=== PATIENT | male | born 1970 | race Caucasian/White ===

== ENCOUNTER → 2020-11-20 09:32 | Outpatient (CLI) | payer OTHER, SELFPAY ==
[2020-11-20 11:43] LABS: Ferritin 171 ng/ml (17.9-464)
== END ==
PROVIDERS: Visit Provider Nurse Practitioner Family
DX: E83.10 Disorder of iron metabolism, unspecified (principal); G25.81 Restless legs syndrome
CPT/HCPCS: 36415; 82728

== ENCOUNTER → 2020-11-26 14:27 | Outpatient (CLI) | payer OTHER, SELFPAY ==
--- NOTE | 2020-11-26 14:33 | CA_ITS ---
APPROVED REPORT EXAM: Comprehensive 2D, Doppler, and color-flow Echocardiogram Stonecutter: Gabby Moscoso RT(R) Ht: 5 ft 10 in Wt: 232lbs BSA: 2.22 BP: 140/84 mmHg Indications: Edema, insomnia, VICENTA, headaches 2D Dimensions LVOT 2.05 cm (M/F) 1.5-2.5 LVEF (Patricia's) 55.30 % M: 52 - 72 LV Volume 102.60 mL M: 62 - 150 LV Volume Index 46.21 mL/m2 M: 34 - 74 LA Volume 22.50 mL LA Volume Index 10.13 mL/m2 (M/F) 16-34 M-Mode Dimensions RVDd 2.61 cm (0.9-2.6) LA Diam 3.66 cm (1.9-4.0) LVDd 3.29 cm (3.5-5.7) Ao Diam 2.94 cm (2.0-3.7) LVDs 3.12 cm (3.5-5.7) IVSd 1.04 cm (0.6-1.1) PWd 0.86 cm (0.6-1.1) EF (Teich) 12.10% FS 5.20% EDV (Teich) 43.80 mL TAPSE 2.02 (<1.7) ESV (Teich) 38.50 mL LV Diastology E Decel Time 217.00 (160-240 msec) E/A Ratio 1.1 MED E' 6.50 (< 7 cm/sec) E'/MED E' Ratio 8.83 (>14) LAT E' 6.80 (<10 cm/sec) E/LAT E' Ratio 8.44 (>14) Mitral Valve MV E Max Jason. 57.00 (40-130 cm/s) MV A Velocity 51.00 (40-130 cm/s) E/A Ratio 1.12 MV Decel. Time 217.00 (160-240 ms) MV PHT 63.00 ms Left Ventricle Left atrium is normal size, left ventricle is normal size, left ventricle wall thickness is upper limit of normal, there is preserved left ventricular systolic function, visually estimated ejection fraction 55% with no regional wall motion abnormality, endocardial surfaces are poorly visualized. Diastolic parameters are inconclusive. Right Ventricle Right atrium and right ventricle are mildly enlarged with normal contractility. Aortic Valve Aortic valve is minimally thickened and fibrosed, there is no aortic stenosis or aortic insufficiency. Mitral Valve Mitral valve is grossly normal, there is trace mitral regurgitation. Tricuspid Valve Tricuspid grossly normal, there is trace tricuspid regurgitation, tricuspid regurgitation jet velocity is inadequate for calculation of the right ventricular systolic pressure. Pulmonic Valve Pulmonic valve is poorly visualized. Great Vessels Aortic root is normal size. Pericardium No significant pericardial effusion noted. Conclusion 1. Technically difficult study because of the patient factors and poor acoustic windows. Normal left ventricular size, preserved left ventricular systolic function, visually estimated ejection fraction 55% with no regional wall motion abnormality, diastolic parameters are inconclusive. 2. Mildly enlarged right ventricle with normal contractility. 3. Trace mitral and tricuspid regurgitation. 4. No significant pericardial effusion noted. Electronically signed by : Eduardo King, 11/27/2020 15:56:34
== END ==
PROVIDERS: PCP Physician Assistant; Visit Provider Specialist
DX: R60.0 Localized edema (principal); G47.31 Primary central sleep apnea; Z68.33 Body mass index [BMI] 33.0-33.9, adult
CPT/HCPCS: 93306

== ENCOUNTER → 2020-12-26 09:40 | Outpatient (CLI) | payer OTHER, SELFPAY | PROVIDERS: Visit Provider Nurse Practitioner Family | DX: Z20.822 Contact with and (suspected) exposure to COVID-19 (principal) | CPT/HCPCS: U0003 ==

== ENCOUNTER → 2020-12-29 20:15 | Outpatient (CLI) | payer OTHER, SELFPAY | PROVIDERS: PCP Family Medicine; Visit Provider Nurse Practitioner Family | DX: G47.39 Other sleep apnea (principal) | CPT/HCPCS: 95810 ==

== ENCOUNTER → 2021-12-30 08:38 | Outpatient (CLI) | payer BC, OTHER, SELFPAY ==
[2021-12-30 09:02] LABS: Basophils # 0.1 K/mm3 (0-0.2); Basophils % 1.5 % (0.1-2.0); Eosinophils # 0.1 K/mm3 (0.0-0.4); Eosinophils % 2.4 % (0.1-12.0); Hematocrit 45.5 % (42.0-52.0); Hemoglobin 15.7 g/dL (14.1-18.0); Lymphocytes # 1.9 K/mm3 (0.7-4.5); Lymphocytes % 37.5 % (10-50); Mean Corpuscular HGB Conc 34.4 g/dL (31.8-35.4); Mean Corpuscular Hemoglobin 32.4 pg (27.0-31.2); Mean Corpuscular Volume 94.1 fl (80-94); Mean Platelet Volume 8.2 fl (7.4-10.4); Monocytes # 0.3 K/mm3 (0.1-1.0); Monocytes % 5.3 % (1.7-9.3); Neutrophils # 2.7 K/mm3 (1.8-7.8); Neutrophils % 53.5 % (37.0-80.0); Platelet Count 194 K/mm3 (142-424); Red Blood Count 4.84 M/mm3 (4.60-6.20); Red Cell Distribution Width 13.3 % (11.5-17.5); White Blood Count 5.1 K/mm3 (4.8-10.8)
[2021-12-30 09:27] LABS: Alanine Aminotransferase 35 U/L (12-78); Albumin Level 4.8 g/dl (3.5-5.0); Albumin/Globulin Ratio 1.8 (1.1-1.8); Alkaline Phosphatase 92 U/L (38-126); Anion Gap 15.3 mEq/L (5-15); Aspartate Amino Transferase 37 U/L (17-59); Bilirubin,Total 0.9 mg/dl (0.2-1.3); Blood Urea Nitrogen 18 mg/dl (9-20); Calcium 9.5 mg/dl (8.4-10.2); Carbon Dioxide 23 mmol/L (22.0-30.0); Chloride 106 mmol/L (98-107); Chol/HDL Ratio 6.9 (1-3.5); Cholesterol 263 mg/dl (140-200); Estimated Glomerular Filt Rate 71 ml/min (>60); GFR (African American) 86 ML/MIN (>60); Globulin 2.7 g/dL (1.3-3.2); Glucose 104 mg/dl (74-100); HDL Cholesterol 38 mg/dl (40-60); Potassium 3.3 mmoL/L (3.5-5.1); Sodium 141 mmol/L (136-145); Total Protein,Serum 7.5 g/dl (6.3-8.2); Triglycerides 100 mg/dl (30-150); VLDL Cholesterol 20 mg/dL (0-40)
[2021-12-30 09:38] LABS: Direct LDL Cholesterol 181.11 mg/dL (100-129)
[2021-12-30 09:58] LABS: Thyroid Stimulating Hormone 2.61 uIU/mL (0.465-4.68)
== END ==
PROVIDERS: PCP Family Medicine; Visit Provider Family Medicine
DX: G47.419 Narcolepsy without cataplexy (principal); R53.83 Other fatigue; R73.9 Hyperglycemia, unspecified; K21.9 Gastro-esophageal reflux disease without esophagitis; N40.0 Benign prostatic hyperplasia without lower urinary tract symptoms
CPT/HCPCS: 36415; 80053; 80061; 83036; 84443; 85025

== ENCOUNTER 2021-12-30 09:41 | Emergency (ER) | payer OTHER, BC, SELFPAY ==
[2021-12-30 09:42] VITALS: BP 119/80; PULSE 96; RESP 18; RESP 19; TEMP 36.7; O2SAT 98; BMI 29.4
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
[2021-12-30 10:22] VITALS: BP 119/80; PULSE 96; RESP 19; TEMP 36.7; O2SAT 98; BMI 29.4
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
--- NOTE | 2021-12-30 11:24 | PC.NURSE ---
Notified RAD of CTs
--- NOTE | 2021-12-30 11:28 | PC.NURSE ---
patient to CT with instrumentation engineering technician
[2021-12-30 13:22] VITALS: BP 121/74; PULSE 79; RESP 16; TEMP 36.7; O2SAT 98
== END 2021-12-30 13:23 | disposition home or self-care (01) ==
LOC: UTC 10:01 → ER 11:18
PROVIDERS: Emergency Provider Nurse Practitioner Family; PCP Family Medicine
DX: S33.5XXA Sprain of ligaments of lumbar spine, initial encounter (principal); V43.52XA Car driver injured in collision with other type car in traffic accident, initial encounter; Y92.488 Other paved roadways as the place of occurrence of the external cause
CPT/HCPCS: 72040; 72070; 72100; 72125; 72128; 99284

== ENCOUNTER 2024-04-02 16:40 | Emergency (ER) | payer OTHER, SELFPAY ==
[2024-04-02 18:48] LABS: UTC Strep Screen (Rapid) Negative (Negative)
--- NOTE | 2024-04-02 18:48 | EXP.UTC ---
Discharge Plan Disposition Patient Disposition: Home, Self-Care Condition: Good Prescriptions Prescriptions: New azithromycin [Zithromax Z-Jordy] 250 mg tablet See Rx Instructions .ROUTE .COMPLEX 5 Days Qty: 6 0RF Rx Instructions: For 250 mg dose pack: take 500 mg today (day 1), then 250 mg for 4 days (days 2-5) benzonatate 100 mg capsule 100 mg PO TID PRN (Reason: cough) Qty: 30 0RF methylprednisolone [Medrol (Jordy)] 4 mg tablets,dose pack See Rx Instructions .Route .COMPLEX 6 Days Qty: 21 0RF Rx Instructions: taper pack; guaifenesin [Mucinex] 600 mg tablet extended release 12hr 1,200 mg PO BID PRN (Reason: cough) Qty: 20 0RF No Action duloxetine 30 mg capsule,delayed release(DR/EC) 30 mg PO DAILY meclizine 25 mg tablet 25 mg PO BID PRN methylphenidate HCl 10 mg tablet 20 mg PO BID Patient Comments: TAKE 1 TABLET BY MOUTH TWICE DAILY modafinil 100 mg tablet 100 mg PO DAILY omeprazole 40 mg capsule,delayed release(DR/EC) 40 mg PO ONCE PRN Patient Comments: TAKE 1 CAPSULE BY MOUTH IN THE EVENING ibuprofen 800 MG tablet 800 mg PO Q8HP PRN (Reason: Moderate Pain) Qty: 15 0RF sumatriptan succinate 100 MG tablet 100 mg PO NEEDED PRN (Reason: migraines) buprenorphine-naloxone 8-2 mg tablet, sublingual 8 mg PO DAILY tamsulosin 0.4 mg capsule 0.4 mg PO DAILY topiramate 100 mg tablet 100 mg PO DAILY benzonatate 100 MG capsule 100 mg PO TID PRN (Reason: Cough) Qty: 30 0RF methocarbamol 750 MG tablet 750 mg PO Q8HP PRN (Reason: (Certified Physical Therapist Assistant Use Only) Pain Per Pt) Qty: 30 0RF Referrals Follow up/Referrals: Keven Stephens MD [Primary Care Provider] - See instructions Activity Restrictions/Add. Instructions Additional Instructions/Restrictions: Start antibiotic today. Be sure to complete entire prescription even if feeling better Monitor temp. Tylenol every 4 hours as needed and / or ibuprofen every 6 hours as needed ( As long as your primary care physician has told you that it ok to take both. For fever/aches/pains ER if no less than 101 despite Tylenol or Motrin Humidifier/vaporizer or hot steamy shower Mucinex during the day for your cough and cough suppressant only at night. Be sure to drink lots of water. *Tessalon Perles will not cause drowsiness but use at bedtime to help stop cough so that you may get some rest. *Start steroid tomorrow Helps with inflammation therefore, cough and wheezing. Follow directions on the package. Reviewed side effects. Patient reports taking them before. Follow up IMMEDIATELY for new or worsening of symptoms OR no noticeable improvement over the next 48-72 hours. 911 immediately for any life threatening symptoms such as chest pain or difficulty breathing Clinical Impressions Clinical Impression: Sinusitis, Bronchitis Stand Alone Forms Stand Alone Forms: Work/School Release Instructions Patient Instructions: Acute Bronchitis, DI for Sinusitis Print Language Print Language: Divehi Discharge ED Provider: [facility] [place] HPI General Stated complaint: Cough,congestion,runny nose,weakness Time Seen by Provider: 04/02/24 18:48 History of Present Illness Provider Complaint: Patient states he has been sick for about a week with sore throat, sinus congestion and pressure, drainage in the back of his throat and cough and chest congestion States today he was feeling worse so he came in to get checked Related Data Home Medications ?Medication ?Instructions ?Recorded ?Confirmed sumatriptan succinate 100 mg tablet 100 mg PO NEEDED PRN migraines 02/21/18 10/20/23 buprenorphine 8 mg-naloxone 2 mg 8 mg PO DAILY uknown 11/17/20 10/20/23 sublingual tablet duloxetine 30 mg capsule,delayed 30 mg PO DAILY 11/17/20 10/20/23 release meclizine 25 mg tablet 25 mg PO BID PRN 11/17/20 10/20/23 tamsu
[2024-04-02 18:50] VITALS: BP 139/80; PULSE 66; RESP 18; TEMP 36.4; O2SAT 98; BMI 27.3
[2024-04-02 19:31] VITALS: BP 139/80; PULSE 66; RESP 18; TEMP 36.4; O2SAT 98
== END 2024-04-02 19:32 | disposition home or self-care (01) ==
PROVIDERS: Emergency Provider Nurse Practitioner; PCP Family Medicine
DX: J20.9 Acute bronchitis, unspecified (principal); J01.90 Acute sinusitis, unspecified; R07.0 Pain in throat; R09.82 Postnasal drip; R05.9 Cough, unspecified
CPT/HCPCS: 87635; 87880; 96372; 99204; 99212; G0463; J2919

== ENCOUNTER 2024-04-23 18:40 | Emergency (ER) | payer OTHER, SELFPAY ==
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
[2024-04-23 20:20] VITALS: BP 121/76; PULSE 65; RESP 19; TEMP 36.8; O2SAT 97; BMI 27.5
--- NOTE | 2024-04-23 20:39 | EXP.UTC ---
Discharge Plan Disposition Patient Disposition: Home, Self-Care Condition: Good Prescriptions Prescriptions: New cyclobenzaprine 10 mg Tablet 10 mg PO BID PRN (Reason: Muscle Spasm) Qty: 20 0RF ibuprofen [IBU] 800 mg tablet 800 mg PO Q8HP PRN (Reason: Moderate Pain) Qty: 30 0RF No Action sumatriptan succinate 100 mg tablet 100 mg PO DAILY Patient Comments: TAKE 1 TABLET BY MOUTH NEEDED FOR HEADACHE methylphenidate HCl 20 mg tablet 20 mg PO DAILY Patient Comments: TAKE 1 & 1/2 (ONE & ONE-HALF) TABLETS BY MOUTH TWICE DAILY omeprazole 40 mg capsule,delayed release(DR/EC) 40 mg PO DAILY Patient Comments: TAKE 1 CAPSULE BY MOUTH IN THE EVENING tamsulosin 0.4 mg capsule 0.4 mg PO DAILY Patient Comments: TAKE 1 CAPSULE BY MOUTH ONCE DAILY topiramate 100 mg tablet 100 mg PO BID Patient Comments: TAKE 1 TABLET BY MOUTH TWICE DAILY modafinil [Provigil] 100 mg tablet 100 mg PO DAILY Patient Comments: TAKE 1 TABLET BY MOUTH ONCE DAILY IN THE MORNING buprenorphine-naloxone 8-2 mg tablet, sublingual 1 tab SUBLINGUAL DAILY duloxetine 30 mg capsule,delayed release(DR/EC) 30 mg PO DAILY Referrals Follow up/Referrals: Jamar Lujan DO [Staff Physician] - See instructions Keven Stephens MD [Primary Care Provider] - See instructions Activity Restrictions/Add. Instructions Additional Instructions/Restrictions: Go home and rest. It would be best if you rested for the next few days too. No heavy lifting. No twisting. Take the oral medications as directed. Follow with the orthopedic doctor (Dr. Lujan). I put in a referral but you need to call his office and get an appointment. Please call his office in the morning. The muscle relaxer (cyclobenzaprine--Flexeril) will make you drowsy, so don't drive or operate heavy machinery after taking it. Follow up with your regular doctor. GO TO THE ER FOR ANY WORSENING SYMPTOMS OR CONCERN, ESPECIALLY BOWEL OR BLADDER ISSUES, SADDLE AREA NUMBNESS, FEVER, ETC Clinical Impressions Clinical Impression: Fall, Neck pain, Knee pain, right, Hip pain, right, Low back pain, Pain in right shoulder, Acute pain of right wrist Stand Alone Forms Stand Alone Forms: Work/School Release Print Language Print Language: Swedish Discharge ED Provider: Booker Neely [facility] General Stated complaint: AO fall 04/22, all over pain Mode of Arrival: Ambulatory Source of Information: Patient Limitations: No Limitations Time Seen by Provider: 04/23/24 20:39 Description of Symptoms (Recalled from Triage Doc. 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 PATIENT C/O PAIN TO NECK, RIGHT GROIN AREA, TAILBONE, LOWER BACK, RIGHT KNEE, AND RIGHT SHOULDER HEENT Symptoms (Recalled from RN notes): No Resp Symptoms (Recalled from RN notes): No Skin Symptoms (Recalled from RN notes): No MS Symptoms (Recalled from RN notes): Yes Functional Status (Recalled from RN notes): WNL History of Present Illness Provider Complaint: He states that he fell in a gas station yesterday. Since then he has had multiple complaints of pain. He states he is having neck pain, right shoulder pain, right hip pain, coccyx pain. Related Data Home Medications ?Medication ?Instructions ?Recorded ?Confirmed buprenorphine 8 mg-naloxone 2 mg 1 tab sublingual DAILY 04/23/24 04/23/24 sublingual tablet duloxetine 30 mg capsule,delayed 30 mg PO DAILY 04/23/24 04/23/24 release methylphenidate HCl 20 mg tablet 20 mg PO DAILY 04/23/24 04/23/24 modafinil 100 mg tablet (Provigil) 100 mg PO DAILY 04/23/24 04/23/24 omeprazole 40 mg capsule,delayed 40 mg PO DAILY 04/23/24 04/23/24 release sumatriptan succinate 100 mg tablet 100 mg PO DAILY 04/23/24 04/23/24 tamsulosin 0.4 mg capsule 0.4 mg PO DAILY 04/23/24 04/23/24 topiramate 100 mg tablet 100 mg PO BID 04/23/24 04/23/24 Previous Rx's ?Medication ?Instructions ?Recorded cyclobenzaprine 10 mg tablet 10 mg PO BID PRN Muscle Spasm #20 04/23/24 tabs ibuprofen 800 mg tablet (IBU) 800 mg PO Q8HP PRN Moderate Pain 04/23/24 #30 tabs Allergies Allergy/AdvReac Type Severity Reaction Status Date / Time cephalexin [CEPHALEXIN] Allergy Mild Anaphylaxis Verified 04/23/24 20:32 Worker's Comp Is this a Worker's Comp case?: No [facility] Disclaimer: The information contained in this section may have been updated after the patient was seen, as this information can be updated by other users. Medical History Migraine VICENTA (obstructive sleep apnea) Family History Other Cancer Coronary artery disease Social History Smoking Status: Never smoker second hand exposure: No alcohol intake: never substance use type: former substance user and prescription drug current occupational status: employed Travel in the last 8 weeks: None household members: spouse housing: house ROS Obtained: Yes All systems reviewed & no additional complaints except as documented Constitutional Constitutional: Denies chills, Denies fever(s) and Denies headache(s) Eyes Eyes: Denies eye discharge ENT Ears, Nose, Mouth, and Throat: Denies dizziness, Denies otalgia, Denies headache(s) and Denies sore throat Cardiovascular Cardiovascular: Denies chest pain Respiratory Respiratory: Denies shortness of breath, Denies chest congestion, Denies cough, Denies stridor and Denies wheezing Gastrointestinal Gastrointestingal: Denies abdominal pain, nausea or vomiting Musculoskeletal Musculoskeletal: Reports as per HPI Integumentary/Breasts Skin/Breast: Denies redness, Denies rash and Denies wounds Neurologic Neurologic: Denies dizziness, Denies headache(s), Denies paresthesias and Denies radicular pain Allergic/Immunologic Allergic/Immunologic: Denies wheezing Physical Exam General General appearance: alert and in no apparent distress Head Head exam: atraumatic, normocephalic and normal inspection Eye Eye exam: Present normal appearance, PERRL and EOMI ENT ENT exam: Present normal exam, normal oropharynx, mucous membranes moist, TM's normal bilaterally and normal external ear exam Neck Neck exam: Present normal inspection, full ROM and trachea midline; Absent meningismus or lymphadenopathy Chest Chest inspection: Present normal inspection and symmetric chest wall rise; Absent tenderness Respiratory Respiratory exam: Present normal lung sounds bilaterally; Absent respiratory distress Cardiovascular Cardiovascular exam: Present regular rate and normal rhythm; Absent JVD Abdominal Exam Abdominal exam: Present soft and normal bowel sounds; Absent distention, tenderness or guarding Extremities Exam Extremities exam: Present normal capillary refill; Absent calf tenderness Expanded Upper Extremity Exam Right: Shoulder exam: Present tenderness; Absent full ROM, swelling, abrasion, laceration, ecchymosis, deformity, crepitus, dislocation, erythema or tenderness over AC joint Arm exam: Present normal inspection and full ROM; Absent tenderness or swelling Elbow exam: Present normal inspection and full ROM; Absent tenderness, swelling, pain w/ pronation/supination or tenderness over radial head Forearm/Wrist exam: Present full ROM, tenderness and swelling; Absent abrasion, laceration, ecchymosis, deformity, crepitus, dislocation, erythema, tenderness over anatomical snuff box or pain with axial thumb loading Hand exam: Present normal inspection and full ROM; Absent tenderness Neuromotor exam: Normal wrist extension, thumb opposition, thumb IP flexion, thumb adduction and fingers 2-5 abduction Neurosensory exam: Normal radial nerve, ulnar nerve and median nerve Vascular exam: Normal capillary refill, radial pulse and ulnar pulse Expanded Lower Extremity Exam Right: Hip/Pelvis exam: Present normal inspection, full ROM, tenderness and pelvis stable; Absent swelling, ecchymosis, deformity, dislocation, external rotation, internal rotation, shortening of leg, pain on hip/pelvis palpation, hip pain on leg movement, erythema, crepitus, laceration or abrasion Upper leg exam: Present normal inspection and full ROM; Absent tenderness or swelling Knee exam: Present full ROM and tenderness; Absent swelling, abrasion, laceration, ecchymosis, deformity, crepitus, dislocation, erythema, effusion, anterior drawer sign, posterior draw sign, pain with valgus, laxity with valgus, pain with varus, laxity with varus or knee extension intact Lower leg exam: Present normal inspection; Absent full ROM, tenderness or swelling Ankle exam: Present normal inspection and full ROM; Absent tenderness, tenderness over talofibular lig or anterior draw sign Foot/toe exam: Present normal inspection and full ROM; Absent tenderness or swelling Neurovascular/Tendon exam: Present normal capillary refill, normal 2-point discrimination and normal fine/light touch; Absent pulse deficit, motor deficit, sensory deficit, tendon deficit, extremity cold to touch or pallor Gait: observed and limited by pain Back Exam Back exam: Present normal inspection; Absent tenderness Neurological Exam Neurological exam: Present alert and oriented X3 Psychiatric Psychiatric exam: Present normal affect and normal mood Skin Skin exam: Present warm, dry, intact and normal color Lymphatic Lymphatic Findings: no adenopathy Medical Decision Making Medical Records Medical records reviewed: No I reviewed the patient's medical records. Dajuan Inquiry Pt receiving controlled substance: No Vital Signs: 04/23/24 20:20 Temperature 98.3 F Temperature Source Oral Pulse Rate [Left Brachial] 65 Respiratory Rate 19 Blood Pressure [Left Arm] 121/76 Blood Pressure Mean [Left Arm] 91 Blood Pressure Source [Left Arm] Automatic Cuff Blood Pressure Position [Left Arm] Sitting 02 Sat by Pulse Oximetry 97 Oxygen Delivery Method Room Air Orders (Tests/Meds): ORDERS Category Date Time Status Shoulder XR right miminum 2 views [XR shoulder RT min Exams 04/23/24 19:32 Taken 2V] Stat Wrist XR right minimum 3 views [XR wrist RT min 3V] Exams 04/23/24 20:01 Taken Stat XR cervical spine 3V Stat Exams 04/23/24 19:32 Taken XR coccyx 2V Stat Exams 04/23/24 19:32 Taken XR hip RT 2-3V w/pelvis Stat Exams 04/23/24 19:32 Taken XR knee RT 3V Stat Exams 04/23/24 19:32 Taken XR lumbar spine 2-3V Stat Exams 04/23/24 19:32 Taken Procedures Risk/Benefits of Procedure(s) Were Explained: Yes Orthopedic Splinting/Casting Injury #1: Side: right Upper Extremity Injury Location: forearm, wrist and hand Upper Extremity Immobilizer: volar splint and applied by nurse/dr guillory Post Cast/Splinting Neuro Status: intact and no change Post Cast/Splinting Vasc Status: intact and no change
[2024-04-23] MEDS: KETOROLAC 60MG/2ML VIAL 60 MG IM (21:30)
[2024-04-23 21:41] VITALS: BP 121/76; PULSE 65; RESP 19; TEMP 36.8; O2SAT 97
== END 2024-04-23 21:47 | disposition home or self-care (01) ==
PROVIDERS: Emergency Provider Nurse Practitioner Family; PCP Family Medicine
DX: M54.2 Cervicalgia (principal); M25.561 Pain in right knee; M25.551 Pain in right hip; M25.511 Pain in right shoulder; M25.531 Pain in right wrist; M54.50 Low back pain, unspecified; W19.XXXA Unspecified fall, initial encounter
CPT/HCPCS: 72040; 72100; 72220; 73030; 73110; 73502; 73562; 96372; 99212; 99214; G0463; J1885

== ENCOUNTER 2024-05-08 12:29 | Outpatient (CLI) | payer OTHER, SELFPAY ==
[2024-05-08 12:58] LABS: Amphetamine/Metha Screen,Urine Negative ng/ml (<1000)
[2024-05-08 12:59] LABS: Barbiturates Screen,Urine Negative ng/ml (<200); Benzodiazepines Screen,Urine Negative ng/ml (<200)
[2024-05-08 13:00] LABS: Cannabinoid Screen,Urine Negative ng/ml (<50); Cocaine Screen,Urine Negative ng/ml (<300)
[2024-05-08 13:01] LABS: Methadone Screen,Urine Negative ng/ml (<300)
[2024-05-08 13:02] LABS: Opiate Screen,Urine Negative ng/ml (<300); Phencyclidine Screen,Urine Negative ng/ml (<25)
== END 2024-05-08 23:59 | disposition home or self-care (01) ==
LOC: LAB 12:30
PROVIDERS: PCP Family Medicine; Visit Provider Family Medicine
DX: Z79.899 Other long term (current) drug therapy (principal)
CPT/HCPCS: 80307

== ENCOUNTER 2024-07-25 17:00 | Outpatient (RCR) | payer BC, OTHER, SELFPAY ==
--- NOTE | 2024-07-18 18:28 | HMH.RHREAS ---
Rehab Reassessment Rehab OP Re-assessment Start: 06/20/24 18:00 Freq: Status: Active Protocol: Document 07/18/24 18:20 CRISTINE (Rec: 07/18/24 18:26 CRISTINE [id number]) E-signed By Berhane Martinez, PT Neck Disability Index Neck Disability Index Section 1: Pain Intensity The pain is fairly severe at the moment Section 2: Personal Care (washing, I can look after myself dressing, etc.) normally but it causes extra pain Section 3: Lifting I can lift heavy weights but it gives extra pain Section 4: Reading I can't read as much as I want because of moderate pain in my neck Section 5: Headaches I have severe headaches, which come frequently Section 6: Concentration I have a fair degree of difficulty in concentrating when I want to Section 7: Work I cannot do my usual work Section 8: Driving I can drive my car as long as I want with moderate pain in my neck Section 9: Sleeping My sleep is greatly disturbed (3-5 hrs sleepless) Section 10: Recreation I can hardly do any recreation activities because of pain in my neck NDI Score 27 Rehab Re-assessment Subjective Subjective Patient reports no significant improvement since start of care. Objective Objective Notes AROM: flx 34; ext 46; SBr 22; SBl 24; Rr31; Rl 32 MMT: WNL Pain: 8/10 currently; 9/10 at worst over past week Neuro: no changes in sensation or MMT BUE. Assessment Progress Assessment Slower Than Expected Assessment Notes Patient has been seen for 1 follow-up visit since start of care. Patient would benefit from continuing with skilled PT services in order to address functional limitations with reaching/lifting activities. Patient goals met STG 2 Goals Not Met STG 1; LTGs Revised Goals NA Plan Plan Continue with current POC. Frequency of Therapy 2x/week Duration of therapy 4 weeks Time and Billing Re-Eval Time 14 Re-Eval Billing Units 1 Charge for PT reassessment? Yes PHYSICIAN CERTIFICATION: I certify the specified therapy services for Du Dequan are required, authorized, and reviewed every 30 days.
== END 2024-07-25 23:59 | disposition home or self-care (01) ==
LOC: PT 17:00
PROVIDERS: PCP Family Medicine; Visit Provider Family Medicine
DX: M54.2 Cervicalgia (principal); S16.1XXA Strain of muscle, fascia and tendon at neck level, initial encounter
CPT/HCPCS: 20561; 97014; 97110; 97163; 97164; 97530; G0283

== ENCOUNTER 2024-08-28 15:10 | Outpatient (CLI) | payer BC, OTHER, SELFPAY ==
--- NOTE | 2024-08-28 15:16 | XR_ITS ---
FINAL REPORT TECHNIQUE: Chest PA & Lateral CLINICAL HISTORY: Shortness of breath, atypical angina COMPARISON: 02/21/2018 FINDINGS: 2 views of the chest were performed. The heart size is normal. The mediastinum is within normal limits. There is no acute cardiopulmonary process. There are no pleural effusions. There is no pneumothorax. The bony thorax appears intact. IMPRESSION: No acute cardiopulmonary process. Reviewed, Interpreted and Dictated by Ankit Murphy MD Transcribed by Moriah Thapa Authenticated and [facility]
--- NOTE | 2024-08-28 15:16 | CT_ITS ---
FINAL REPORT TECHNIQUE: Thin section axial CT images were obtained of the facial bones/sinuses. Coronal and sagittal reconstructions were obtained and reviewed. This study was performed with techniques to keep radiation doses as low as reasonably achievable, (ALARA). Individualized dose reduction techniques using automated exposure control or adjustment of mA and/or kV according to the patient's size were employed. CLINICAL HISTORY: previous hx of broken nasal bones COMPARISON: None FINDINGS: The paranasal sinuses are well aerated. There is no fracture. There are no air-fluid levels. IMPRESSION: Unremarkable. Reviewed, Interpreted and Dictated by Ankit Murphy MD Transcribed by Moriah Thapa Authenticated and [facility]
[2024-08-28 15:48] LABS: Basophils % 0.5 % (0.1-2.0); Eosinophils # 0.1 K/mm3 (0.0-0.4); Eosinophils % 1.8 % (0.1-12.0); Hematocrit 44.3 % (42.0-52.0); Hemoglobin 14.9 g/dL (14.1-18.0); Lymphocytes % 35.7 % (10-50); Mean Corpuscular HGB Conc 33.6 g/dL (31.8-35.4); Mean Corpuscular Hemoglobin 30.2 pg (27.0-31.2); Mean Corpuscular Volume 89.9 fl (80-94); Mean Platelet Volume 9.6 fl (7.4-10.4); Monocytes # 0.3 K/mm3 (0.1-1.0); Monocytes % 5.7 % (1.7-9.3); Neutrophils # 3.2 K/mm3 (1.8-7.8); Neutrophils % 55.9 % (37.0-80.0); Platelet Count 193 K/mm3 (142-424); Red Blood Count 4.93 M/mm3 (4.60-6.20); Red Cell Distribution Width 11.9 % (11.5-17.5); White Blood Count 5.6 K/mm3 (4.8-10.8)
[2024-08-28 16:06] LABS: Albumin Level 4.9 g/dl (3.5-5.0); Chloride 107 mmol/L (98-107); Potassium 4.2 mmoL/L (3.5-5.1); Sodium 136 mmol/L (136-145)
[2024-08-28 16:09] LABS: Alanine Aminotransferase 25 U/L (12-78); Alkaline Phosphatase 108 U/L (38-126); Anion Gap 11.2 mEq/L (5-15); Aspartate Amino Transferase 29 U/L (17-59); Bilirubin,Direct 0.2 mg/dl (0.0-0.4); Bilirubin,Indirect 0.2 mg/dL (0.0-0.9); Bilirubin,Total 0.4 mg/dl (0.2-1.3); Bilirubin,Unconjugated 0.2 mg/dL (0.0-1.1); Blood Urea Nitrogen 15 mg/dl (9-20); Calcium 9.5 mg/dl (8.4-10.2); Carbon Dioxide 22 mmol/L (22.0-30.0); Cholesterol 212 mg/dl (140-200); Estimated Glomerular Filt Rate 89 ml/min (>60); GFR (African American) 108 ML/MIN (>60); Glucose 101 mg/dl (74-100); Total Protein,Serum 7.5 g/dl (6.3-8.2)
[2024-08-28 16:10] LABS: Chol/HDL Ratio 6.8 (1-3.5); HDL Cholesterol 31 mg/dl (40-60); Magnesium 1.9 mg/dl (1.6-2.3)
[2024-08-28 16:21] LABS: Direct LDL Cholesterol 109.25 mg/dL (100-129)
[2024-08-28 16:23] LABS: Triglycerides 491 mg/dl (30-150)
[2024-08-28 19:06] LABS: Free T4 (Free Thyroxine) 1.01 ng/dl (0.78-2.19)
== END 2024-08-28 23:59 | disposition home or self-care (01) ==
LOC: RAD 15:11
PROVIDERS: Nurse Practitioner Family; PCP Family Medicine; Visit Provider Nurse Practitioner
DX: R53.83 Other fatigue (principal); I20.89 Other forms of angina pectoris; R06.00 Dyspnea, unspecified; J32.9 Chronic sinusitis, unspecified; R42 Dizziness and giddiness
CPT/HCPCS: 36415; 70486; 71046; 80048; 80061; 80076; 83735; 84439; 84443; 85025

== ENCOUNTER 2024-09-06 16:56 | Outpatient (CLI) | payer BC, OTHER, SELFPAY ==
[2024-09-06 17:41] LABS: D-Dimer 0.58 ug/mL (0.0-0.5)
== END 2024-09-06 23:59 | disposition home or self-care (01) ==
LOC: LAB 16:58
PROVIDERS: Physician Assistant; PCP Family Medicine; Visit Provider Nurse Practitioner Family
DX: R06.09 Other forms of dyspnea (principal)
CPT/HCPCS: 36415; 85378

== ENCOUNTER 2024-09-18 04:33 | Emergency (ER) | payer BC, OTHER, SELFPAY ==
[2024-09-18] VITALS (16 sets, daily range): BP systolic 129–151; BP diastolic 86–100; PULSE 77–99; RESP 9–20; TEMP 36.7–37.1; O2SAT 95–100; BMI 27.9
--- NOTE | 2024-09-18 04:45 | PC.NURSE ---
Pt awake alert and oriented pain a 10 on 1-10 scale in left clavicle area radiating to back Area tender to palpation. Skin pink warm and dry Resp full and easy but gaurded due to pain. Speech clear and appropriate.
--- NOTE | 2024-09-18 04:46 | ECG_ITS ---
APPROVED REPORT Exam: Resting ECG HR:90 bpm ECG Measurements Heart Rate 90 AXES WA 142 P 45 QRSd 109 QRS 19 QT 338 T 55 QTc 386 Conclusion SINUS RHYTHM POSSIBLE RIGHT VENTRICULAR CONDUCTION DELAY [RSR (QR) IN V1/V2] PROBABLE LATERAL MYOCARDIAL INFARCTION , PROBABLY OLD [35 ms Q WAVE IN I/aVL/V5/V6] No STEMI Electronically signed by : SHANDA ALONZO, 09/19/2024 07:16:21
--- NOTE | 2024-09-18 04:52 | XR_ITS ---
PROCEDURE INFORMATION: Exam: XR Chest Exam date and time: 09/18/2024 5:13 AM Age: 53 years old Clinical indication: Pain; Chest pressure; Additional info: L upper chest/shoulder pain TECHNIQUE: Imaging protocol: Radiologic exam of the chest. Views: 2 views. COMPARISON: CR XR CHEST 2V 08/28/2024 3:19 PM FINDINGS: Lungs: Unremarkable. No consolidation. Pleural spaces: Unremarkable. No pleural effusion. No pneumothorax. Heart/Mediastinum: Unremarkable. No cardiomegaly. Bones/joints: Degenerative change of the visualized osseous structures. IMPRESSION: No acute findings.
--- NOTE | 2024-09-18 04:52 | XR_ITS ---
PROCEDURE INFORMATION: Exam: XR Left Clavicle, Complete Exam date and time: 09/18/2024 5:17 AM Age: 53 years old Clinical indication: Pain; Other: Clavicle; Additional info: Pain medial clavicle TECHNIQUE: Imaging protocol: Radiologic exam of the left clavicle. Complete exam. Views: Any number of views. COMPARISON: CR Shoulder L 09/18/2024 5:15 AM FINDINGS: Bones/joints: Arthrosis of the acromioclavicular and glenohumeral joint. Postprocedural change of the proximal humerus. Soft tissues: Normal. IMPRESSION: Degenerative changes without acute finding.
--- NOTE | 2024-09-18 04:52 | XR_ITS ---
PROCEDURE INFORMATION: Exam: XR Left Shoulder Exam date and time: 09/18/2024 5:15 AM Age: 53 years old Clinical indication: Pain; Shoulder; Left; Additional info: Pain over top of shoulder to medial clavicle TECHNIQUE: Imaging protocol: Radiologic exam of the left shoulder. Views: 2 or more views. COMPARISON: CR XR CHEST 2V 09/18/2024 5:13 AM FINDINGS: Bones/joints: Arthrosis of the acromioclavicular and glenohumeral joint. Postprocedural changes of the proximal humerus. Soft tissues: Normal. IMPRESSION: Osteoarthritis without acute findings.
--- NOTE | 2024-09-18 04:55 | HMH.EDGENADL ---
Discharge Plan Disposition Patient Disposition: Home, Self-Care Condition: Fair Chief Complaint: Neck Pain/Injury Prescriptions Prescriptions: No Action meclizine 25 mg tablet 25 mg PO DAILY PRN (Reason: Vertigo) Patient Comments: TAKE 1 TABLET BY MOUTH THREE TIMES DAILY NEEDED methylphenidate HCl 20 mg tablet 20 mg PO DAILY Patient Comments: TAKE 1 & 1/2 (ONE & ONE-HALF) TABLETS BY MOUTH TWICE DAILY tamsulosin 0.4 mg capsule 0.4 mg PO DAILY Patient Comments: TAKE 1 CAPSULE BY MOUTH ONCE DAILY topiramate 100 mg tablet 100 mg PO BID Patient Comments: TAKE 1 TABLET BY MOUTH TWICE DAILY modafinil [Provigil] 100 mg tablet 100 mg PO DAILY Patient Comments: TAKE 1 TABLET BY MOUTH ONCE DAILY IN THE MORNING duloxetine 30 mg capsule,delayed release(DR/EC) 30 mg PO DAILY ibuprofen [IBU] 800 mg tablet 800 mg PO Q8HP PRN (Reason: Moderate Pain) Qty: 30 0RF omeprazole 40 mg capsule,delayed release(DR/EC) 40 mg PO DAILY PRN (Reason: Acid Reflux) Patient Comments: TAKE 1 CAPSULE BY MOUTH IN THE EVENING sumatriptan succinate 100 mg tablet 100 mg PO DAILY PRN (Reason: Headache) Patient Comments: TAKE 1 TABLET BY MOUTH NEEDED FOR HEADACHE buprenorphine-naloxone 8-2 mg tablet, sublingual 2 tab SUBLINGUAL DAILY Referrals Follow up/Referrals: Keven Stephens MD [Primary Care Provider] - See instructions Activity Restrictions/Add. Instructions Additional Instructions/Restrictions: You were evaluated in the ER. Continue taking your home medications as prescribed. Follow-up with cardiology as scheduled on , do not miss this appointment. Follow-up with your primary care doctor as well. Immediately return to the ER with any new, worsening, or otherwise concerning symptoms. Clinical Impressions Clinical Impression: Chest pain, Left shoulder pain, Arthritis of left shoulder Instructions Patient Instructions: DI for Neck Pain Print Language Print Language: Syriac Discharge ED Provider: Ra Urban Adult [facility] General Chief complaint: Neck Pain/Injury Stated complaint: L shoulder pain Time Seen by Provider: 09/18/24 04:42 Mode of Arrival: Ambulatory Source of Information: Patient Limitations: No Limitations Description of Symptoms (Recalled from ER Triage Doc. by RN): PT C/O LEFT SIDED NECK/SHOULDER PAIN ONGOING FOR MONTHS HOWEVER WORSE TONIGHT. DENIES INJURY OR OTHER SYMPTOMS. History of Present Illness HPI narrative: 53-year-old male with history of VICENTA, deviated septum, migraine, neuropathy, radiculopathy presents to the ER with complaints of left neck/shoulder/left upper chest pain that worsened tonight approximately 4 hours prior to arrival. Reportedly has been going on for months but tonight he was working helping fix a leaking water line and the pain worsened. He denies falling or lifting anything heavy. He points to the medial end of his left clavicle as the point of maximum pain and states that the vein right above it hurts. He states any movement of the left shoulder makes the pain worse. He is right-handed. He denies difficulty breathing or shortness of breath, no nausea, vomiting, dizziness, headache, fevers, chills, cough, congestion, or other associated symptoms. He does not describe the pain as pressure. It does not radiate to his back. He does not have any numbness, tingling, or weakness associated. Patient reports no known cardiac history but does have stress test with cardiology scheduled for this . Related Data Home Medications ?Medication ?Instructions ?Recorded ?Confirmed duloxetine 30 mg capsule,delayed 30 mg PO DAILY 04/23/24 09/18/24 release methylphenidate HCl 20 mg tablet 20 mg PO DAILY 04/23/24 09/18/24 modafinil 100 mg tablet (Provigil) 100 mg PO DAILY 04/23/24 09/18/24 tamsulosin 0.4 mg capsule 0.4 mg PO DAILY 04/23/24 09/18/24 topiramate 100 mg tablet 100 mg PO BID 04/23/24 09/18/24 meclizine 25 mg tablet 25 mg PO DAILY PRN Vertigo 08/15/24 09/18/24 omeprazole 40 mg capsule,delayed 40 mg PO DAILY PRN Acid Reflux 08/15/24 09/18/24 release sumatriptan succinate 100 mg tablet 100 mg PO DAILY PRN Headache 08/15/24 09/18/24 buprenorphine 8 mg-naloxone 2 mg 2 tab sublingual DAILY 08/28/24 09/18/24 sublingual tablet Previous Rx's ?Medication ?Instructions ?Recorded ibuprofen 800 mg tablet (IBU) 800 mg PO Q8HP PRN Moderate Pain 04/23/24 #30 tabs Allergies Allergy/AdvReac Type Severity Reaction Status Date / Time cephalexin (CEPHALEXIN) Allergy Mild Anaphylaxis Verified 09/18/24 04:46 [facility] Disclaimer: The information contained in this section may have been updated after the patient was seen, as this information can be updated by other users. Medical History (Updated 09/18/24 @ 06:27 by Ra Urban MD) Left sided numbness Fatigue Atypical angina Dyspnea Dizziness Carotid artery hypersensitivity Deviated septum Migraine VICENTA (obstructive sleep apnea) Surgical History History of appendectomy History of arthroscopy of shoulder History of arthroscopic knee surgery Family History Other Cancer Coronary artery disease Social History Smoking Status: Never smoker second hand exposure: No alcohol intake: never substance use type: former substance user and prescription drug current occupational status: employed Travel in the last 8 weeks: None household members: spouse housing: house Have you lived/traveled outside [place] in past 30 days?: No Contact w/someone who lives/traveled outside US past 30 days?: No Exposure to someone with infectious disease in past 14 days?: No Do you have a fever (greater than 100.4 F or 38 C)?: No Have you tested positive for COVID-19: No Exposed to someone with COVID-19 in past 14 days?: No Do you have a sore throat?: No Do you have a cough?: No Do you have any weakness?: No Do you have any diarrhea?: No Are you experiencing any unusual bleeding?: No Do you have any muscle aches/pain?: No Do you have any abdominal pain?: No Are you experiencing loss of taste or smell?: No Other Medical History Have you received the Flu Vaccine for this season: No Have you received the Pneumonia Vaccine: No ROS Obtained: Yes Systems reviewed as appropriate & no additional complaints except as documented Per HPI Physical Exam General General appearance: alert and in no apparent distress Head Head exam: atraumatic and normocephalic Eye Eye exam: Present PERRL and EOMI ENT ENT exam: Present mucous membranes moist Neck Neck exam: Present normal inspection, full ROM and tenderness (Tenderness at the inferior aspect of the SCM with no swelling or evidence of trauma, this is the vein that patient reports being painful, no other tenderness of the neck, no cervical spine tenderness) Chest Chest inspection: Present symmetric chest wall rise and tenderness (Patient has tenderness to palpation of the very left upper quadrant of the chest, maximum tenderness at the left sternoclavicular joint with obvious enlargement compared to the right); Absent rash Respiratory Respiratory exam: Absent respiratory distress, wheezes or stridor Cardiovascular Cardiovascular exam: Present regular rate and normal rhythm Abdominal Exam Abdominal exam: Present soft; Absent distention or tenderness Extremities Exam Extremities exam: Present full ROM (Patient has full range of motion throughout, however when he performs range of motion of the left shoulder, he has pain in the shoulder and at the sternoclavicular joint) Neurological Exam Neurological exam: Present alert and oriented X3; Absent motor sensory deficit Psychiatric Psychiatric exam: Present normal affect and normal mood Skin Skin exam: Present warm and dry Medical Decision Making Medical Records Medical records reviewed: Yes I reviewed the patient's medical records. Screening: Per USPSTF and CDC recommendations, given the prevalence of disease in our region, it is our hospital?s policy to screen for HIV and viral Hepatitis for all patients aged 18 and over and those with ongoing risk factors. MR Comment: Most recent cardiology note from 08/28/2024 with Tanya Schneider was reviewed. Reportedly patient was complaining of right sided pain however the description of pain is identical to that which she describes on the left and was being evaluated for atypical angina, EKG at that time showed normal sinus rhythm, possible old lateral infarct with heart rate 84, there plan included NOTE SPECIALIST, GXT Myoview, echo, chest x-ray, CTA PE, and return to clinic in 3 weeks. Chest x-ray from that date personally reviewed demonstrates no acute thoracic abnormality Dajuan Inquiry Pt receiving controlled substance: No Vital Signs: 09/18/24 04:34 Temperature 98.8 F Temperature Source Oral Pulse Rate [Apical] 99 H Respiratory Rate 20 Blood Pressure [Right Arm] 141/96 H Blood Pressure Mean [Right Arm] 111 02 Sat by Pulse Oximetry 98 Oxygen Delivery Method Room Air Lab Data Lab Results 09/18/24 04:45: WBC 8.5, RBC 4.39 L, Hgb 13.5 L, Hct 39.3 L, MCV 89.5, MCH 30.8, MCHC 34.4, RDW 12.3, Plt Count 220, MPV 9.9, Neut % (Auto) 74.3, Lymph % (Auto) 18.1, Jerauld % (Auto) 5.9, Eos % (Auto) 1.1, Baso % (Auto) 0.2, Neut # (Auto) 6.4, Lymph # (Auto) 1.6, Jerauld # (Auto) 0.5, Eos # (Auto) 0.1, Baso # (Auto) 0.0, PT 10.5, INR 0.94, D-Dimer 0.80 H, Sodium 141, Potassium 3.5, Chloride 107, Carbon Dioxide 24, Anion Gap 13.5, BUN 15, Creatinine 1.00, Estimated Creat Clear 109, Estimated GFR 79, Est GFR ( Amer) 95, Glucose 115 H, Calcium 9.0, Total Bilirubin 0.4, AST 39, ALT 34, Alkaline Phosphatase 102, Total Protein 8.0, Albumin 4.9, Globulin 3.1, Albumin/Globulin Ratio 1.6 09/18/24 04:45 09/18/24 04:45 Orders (Tests/Meds): ED MEDICATIONS Discontinued Medications Generic Name Dose Route Start Last Admin Trade Name Freq PRN Reason Stop Dose Admin Ketorolac Tromethamine 30 mg 09/18/24 04:52 09/18/24 05:11 Ketorolac 30mg/Ml Vial IV 09/18/24 04:53 30 mg ONCE ONE Administration Lidocaine 1 each 09/18/24 04:52 09/18/24 05:11 Lidocaine 5% Transdermal Patch TP 09/18/24 04:53 1 each ONCE ONE Administration ORDERS Category Date Time Status CXR 2 view (NOT portable) [XR chest 2V] Stat Exams 09/18/24 04:52 Completed Shoulder XR left minimum 2 views [XR shoulder LT min 2V Exams 09/18/24 04:52 Completed ] Stat XR clavicle LT Stat Exams 09/18/24 04:52 Completed CBC w/Auto Diff [Complete Blood Count Auto Diff] Stat Lab 09/18/24 04:45 Completed CMP [Comprehensive Metabolic Panel] Stat Lab 09/18/24 04:45 Results D-Dimer Stat Lab 09/18/24 04:45 Completed PT INR [Prothrombin Time INR] Stat Lab 09/18/24 04:45 Completed Trop I [Troponin I] Stat Lab 09/18/24 04:45 Results Troponin I Q3H Lab 09/18/24 08:00 Ordered Troponin I Q3H Lab 09/18/24 11:00 Ordered Medical Decision Narrative: In summary, this 53-year-old male with comorbidities as described in the HPI which increase the amount of data to be reviewed as well as his overall morbidity presents to the emergency department today with left shoulder/clavicle/upper chest pain that has been constant for months but worsened tonight at work. On initial evaluation patient is hemodynamically stable, afebrile, he is obviously anxious, exam is notable for benign cardiopulmonary exam however patient has tenderness of the muscles throughout the left shoulder including the inferior aspect of the left SCM, maximum tenderness at the sternoclavicular joint with obvious enlargement of this joint on the left compared to the right. Differential diagnosis includes but is not limited to ACS, PE, pneumothorax, pneumonia, arthritis or injury of the sternoclavicular joint, costochondritis, other musculoskeletal abnormality or injury, electrolyte abnormality, I also considered radiculopathy given patient has history of this however I have very low suspicion for this since he does not have any numbness or tingling and the pain is very obviously at his sternoclavicular joint, not on the posterior aspect of the neck. Based on these concerns, I ordered serum labs, cardiac workup, D-dimer, x-rays. ECG personally interpreted demonstrates normal sinus rhythm, rate 90, normal axis, normal AK and QTc, no STEMI. 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 Labs personally reviewed demonstrate no leukocytosis, trace anemia, platelets normal at 220, PT/INR normal, CMP nonactionable, D-dimer 0.8, by years criteria PE is excluded, initial troponin undetectably low less than 0.01. XR personally interpreted demonstrates no acute thoracic abnormality, degenerative changes of the left shoulder, sternoclavicular joint is difficult to assess, there is no fracture, dislocation, or other acute osseous injury. See radiology read for final interpretation. On reassessment patient's pain is improving. He also received acetaminophen and aspirin. 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 I recommended against this and expressed my concern that he should have a second troponin to rule out evolving TN. We reviewed his imaging showing degenerative changes as well as his labs so far. He is reassured that his EKG is stable from prior and labs are also stable from prior. He states he has follow-up with cardiology 2 days from now and is planning to keep that appointment. He refused second troponin and would like to be discharged. He understands this puts him at increased risk of missing potentially dangerous cardiac problems but is adamant about going home and following up outpatient. Since his pain is resolving with conservative management and he does have reassuring workup including undetectable troponin that was drawn approximately 4 hours after his pain started and has stable ECG from prior, as well as reproducible pain with point tenderness over the sternoclavicular joint, I do have lower suspicion for cardiac etiology. I also have lower suspicion for cardiac etiology since this is an exacerbation of chronic pain. While I would have like the patient to stay for repeat troponin, he has decision-making capacity and close outpatient follow-up for this problem already, I explained to him the low sensitivity of this troponin at this stage which she understands but after extensive discussion he continues to wish to be discharged, he is going as a patient directed discharge. He has insight into his condition and capacity to make this decision at this time. Patient was given instructions on symptomatic management, follow up instructions, and strict return precautions for the emergency department. He states he is absolutely able to come back to the ER if he has any worsening of symptoms and will do so. Patient indicated understanding and left in stable condition. Critical Care Critical Care Time Critical Care Time: No
[2024-09-18] MEDS: LIDOCAINE 5% TRANSDERMAL PATCH 1 EACH TP (05:11)
[2024-09-18] MEDS: KETOROLAC 30MG/ML VIAL 30 MG IV (05:11)
[2024-09-18 05:12] LABS: Basophils % 0.2 % (0.1-2.0); Eosinophils # 0.1 K/mm3 (0.0-0.4); Eosinophils % 1.1 % (0.1-12.0); Hematocrit 39.3 % (42.0-52.0); Hemoglobin 13.5 g/dL (14.1-18.0); Lymphocytes # 1.6 K/mm3 (0.7-4.5); Lymphocytes % 18.1 % (10-50); Mean Corpuscular HGB Conc 34.4 g/dL (31.8-35.4); Mean Corpuscular Hemoglobin 30.8 pg (27.0-31.2); Mean Corpuscular Volume 89.5 fl (80-94); Mean Platelet Volume 9.9 fl (7.4-10.4); Monocytes # 0.5 K/mm3 (0.1-1.0); Monocytes % 5.9 % (1.7-9.3); Neutrophils # 6.4 K/mm3 (1.8-7.8); Neutrophils % 74.3 % (37.0-80.0); Platelet Count 220 K/mm3 (142-424); Red Blood Count 4.39 M/mm3 (4.60-6.20); Red Cell Distribution Width 12.3 % (11.5-17.5); White Blood Count 8.5 K/mm3 (4.8-10.8)
[2024-09-18 05:13] LABS: INR 0.94 (0.9-1.1); Prothrombin Time 10.5 seconds (9.2-12.1)
[2024-09-18 05:27] LABS: Albumin Level 4.9 g/dl (3.5-5.0); Chloride 107 mmol/L (98-107); Potassium 3.5 mmoL/L (3.5-5.1); Sodium 141 mmol/L (136-145)
[2024-09-18 05:30] LABS: Alanine Aminotransferase 34 U/L (12-78); Albumin/Globulin Ratio 1.6 (1.1-1.8); Anion Gap 13.5 mEq/L (5-15); Aspartate Amino Transferase 39 U/L (17-59); Blood Urea Nitrogen 15 mg/dl (9-20); Carbon Dioxide 24 mmol/L (22.0-30.0); Creatinine Clearance Estimated 109 mL/min (50-200); Estimated Glomerular Filt Rate 79 ml/min (>60); GFR (African American) 95 ML/MIN (>60); Globulin 3.1 g/dL (1.3-3.2)
[2024-09-18 05:31] LABS: Alkaline Phosphatase 102 U/L (38-126); Bilirubin,Total 0.4 mg/dl (0.2-1.3); Glucose 115 mg/dl (74-100)
[2024-09-18 06:06] LABS: Troponin I < 0.01 ng/ml (0.00-0.034)
[2024-09-18] MEDS: ACETAMINOPHEN 500MG TAB 1000 MG PO (06:19)
[2024-09-18] MEDS: ASPIRIN 81MG CHEWABLE TABLET 324 MG PO (06:25)
== END 2024-09-18 06:34 | disposition home or self-care (01) ==
PROVIDERS: Emergency Provider Emergency Medicine; PCP Family Medicine
DX: M19.012 Primary osteoarthritis, left shoulder (principal); R07.9 Chest pain, unspecified; M25.512 Pain in left shoulder; M54.2 Cervicalgia; R07.89 Other chest pain
CPT/HCPCS: 71046; 73000; 73030; 80053; 84484; 85025; 85378; 85610; 93005; 96374; 99284; J1885

== ENCOUNTER 2024-09-20 06:32 | Outpatient (CLI) | payer BC, OTHER, SELFPAY ==
--- NOTE | 2024-09-20 | CA_ITS ---
APPROVED REPORT Exam: Exercise Treadmill Technologist: Maylin Pugh Ht: 5 ft 10 in Wt: 198 lbs BSA: 2.08 m2 HR: 77 bpm BP: 139/61 mmHg Rhythm: SR Medical History Medications: Buprenorphine-Naloxone, Duloxetine, Ibuprofen, Meclizine, Modafinil, Methylphenidate HCl, Omeprazole, Sumatriptan Succinate, Tamsulosin, Topiramate Allergies: Cephalexin Cardiac Risk Factors: FHX of CAD Stress Test Details Test: Exercise stress testing was performed using a Gopi protocol. HR Resting HR: 77 bpm Max Heart Rate (APMHR): 169 bpm Max HR Achieved: 150 bpm Target HR (85% APMHR): 144 bpm % of APMHR: 89 Recovery HR: 87 bpm HR response to stress: Normal HR response to stress BP Resting BP: 139.0/61.0 mmHg Max BP: 150.0/89.0 mmHg Recovery BP: 129.0/81.0 mmHg BP response to stress: Normal blood pressure response to stress. ECG Resting ECG: Normal sinus rhythm Stress EC.[address] depression Arrhythmia: None Clinical Exercise duration: 9:00 min Exercise capacity: 7.1 METs Stress ECG Conclusion Patient developed mild dyspnea at peak stress. Ectopy: None ST changes: 0.[address] depression. Conclusion: Average exercise capacity. No evidence of ECG changes at peak stress. Myoview images are reported separately. Electronically signed by : Raven Patel MD 09/26/2024 00:15:47
--- NOTE | 2024-09-20 06:38 | NM_ITS ---
APPROVED REPORT Exam: Nuclear Stress Test Indication: chest pain..soa..fatigue Patient Location: Outpatient Stress Tech: Maylin Pugh [place] Tech:Raquel Rock ELIUEduin RT(R)(N) Ht: 5 ft 10 in Wt: 195 lbs HR: 77 bpm BP: 139/61 mmHg BSA: 2.07 m2 TID: 1.04 BMI: 27.9 History: chest pain..soa..fatigue Procedure: Patient exercised on Gopi protocol 9 minutes and sec, resting heart rate 77 bpm, resting blood pressure 139/61 mmHg, with exercise maximum heart rate achived was 150 bpm which is 85 % of the maximum predicted heart rate and blood pressure was 145/80 mmHg. Test was stopped due to fatigue. Patient denied any complaint of chest pain. Patient has Average exercise capacity, achieved 7.1 METs of workload on treadmill, the blood pressure response to exercise was normal. Cardiac Stress and Resting SPECT Images: Cardiac Stress and Resting SPECT images were obtained using technetium 99m Myoview 31.6 mCi stress and 10.63 mCi at rest. Technically difficult study due to significant soft tissue overlap with the cardiac borders. This may affect diagnostic interpretation of the study findings. Resting and stress imaging in supine and prone positions demonstrate a large sized, moderate, fixed perfusion defect in the inferior LV wall. There is also a medium sized, moderate, reversible perfusion defect in the anterior LV wall. Gated imaging demonstrates mild reduction global LV systolic function. There is moderate hypokinesis of the inferior LV wall. LVEF is calculated at 44%. Conclusion: Large sized, moderate, fixed perfusion defect in the inferior LV wall. There is also a medium sized, moderate, reversible perfusion defect in the anterior LV wall. Findings are suggestive of reversible ischemia. Gated imaging demonstrates mild reduction global LV systolic function. There is moderate hypokinesis of the inferior LV wall. LVEF is calculated at 44%. Electronically signed by : Raven Patel MD 09/26/2024 00:09:45
--- NOTE | 2024-09-20 08:38 | CA_ITS ---
FINAL REPORT TECHNIQUE: Guzman scale, color and spectral doppler images of the bilateral carotid arteries were obtained. CLINICAL HISTORY: Htn COMPARISON: None FINDINGS: Peak systolic velocity in the right internal carotid artery is 77 cm/sec. The internal carotid to common carotid artery ratio is 0.88. There is no significant carotid artery stenosis and no significant plaque formation. The right vertebral artery is normal in direction. Peak systolic velocity in the left internal carotid artery is 79 cm/sec. The internal carotid to common carotid artery ratio is 0.95. There is no significant carotid artery stenosis and no significant plaque formation. The left vertebral artery is normal in direction. IMPRESSION: Less than 50% bilateral carotid artery stenosis. Normal peak systolic velocities and normal internal to common carotid artery ratios bilaterally. Reviewed, Interpreted and Dictated by Michaela Red MD Transcribed by Moriah Thapa Authenticated and [facility]
--- NOTE | 2024-09-20 08:38 | CA_ITS ---
APPROVED REPORT EXAM: Comprehensive 2D, Doppler, and color-flow Echocardiogram Education Manager: Gabby Moscoso RT(R) Ht: 5 ft 10 in Wt: 198lbs BSA: 2.08 BP: 143/67 mmHg Indications: Angina, CP, fatigue, VICENTA 2D Dimensions LA Volume 37.40 mL LA Volume Index 17.035110 mL/m2 (M/F) 16-34 EF AP4 49.40 % GL Strain -14.4 % M-Mode Dimensions RVDd 2.90 cm (0.9-2.6) LA Diam 3.55 cm (1.9-4.0) LVDd 4.63 cm (3.5-5.7) LVDs 3.62 cm (3.5-5.7) IVSd 0.99 cm (0.6-1.1) PWd 1.09 cm (0.6-1.1) EF (Teich) 44.10% FS 21.80% EDV (Teich) 98.80 mL ESV (Teich) 55.20 mL LV Diastology E Decel Time 150 (160-240 msec) E/A Ratio 1.2 Mitral Valve MV E Max Jason. 75.0 (40-130 cm/s) MV A Velocity 63.0 (40-130 cm/s) E/A Ratio 1.19 MV PHT 44.0 ms Left Ventricle The left ventricle is normal size. Left ventricular systolic function is mildly decreased. There is increased LV wall thickness. There is mild global hypokinesis present. The septum is asynchronous. Regional wall motion abnormalities cannot be entirely ruled out in the setting of technically difficult study. Grade 1 diastolic dysfunction is present. LVEF is 45%. Right Ventricle The right ventricle is mildly dilated. The right ventricular systolic function is normal. Atria The left atrium size is normal. The right atrium size is normal. There is no Doppler evidence of interatrial shunt. Aortic Valve Aortic valve opens well. There is no aortic valvular stenosis. No aortic regurgitation is present. Mitral Valve The mitral valve is normal in structure. No evidence of mitral valve stenosis. Mild mitral regurgitation. Tricuspid Valve Tricuspid valve is grossly normal in structure and function. Trace tricuspid regurgitation. There is insufficient TR jet to estimate RVSP. Pulmonic Valve The pulmonary valve is normal in structure. Trace pulmonic regurgitation. Great Vessels The aortic root is normal in size. IVC is normal in size and collapses >50% with inspiration. Pericardium There is no pericardial effusion. Other Information Study Quality: Technically Difficult Conclusion Technically difficult study due to poor acoustic windows. Mildly reduced LV systolic function (LVEF 45%). Asynchronous septum. Regional wall motion abnormalities cannot be entirely ruled out in the setting of technically difficult study. Mild RV dysfunction. Mild MR. Electronically signed by : Raven Patel MD 09/25/2024 23:05:46
[2024-09-20] MEDS: ISOTOPE MYOVIEW (PER STUDY) 1 DOSE IV (09:30)
[2024-09-20] MEDS: SODIUM CHLORIDE 0.9% 10ML SYR (RAD ONLY) 10 ML IV ×2 (09:30)
== END 2024-09-20 23:59 | disposition home or self-care (01) ==
LOC: RAD 06:34
PROVIDERS: PCP Family Medicine; Visit Provider Nurse Practitioner Family
DX: I20.89 Other forms of angina pectoris (principal); R06.00 Dyspnea, unspecified; R53.83 Other fatigue; R42 Dizziness and giddiness
CPT/HCPCS: 78452; 93017; 93018; 93306; 93880; A9502

== ENCOUNTER 2024-10-02 07:34 | Outpatient (CLI) | payer BC, OTHER, SELFPAY ==
--- NOTE | 2024-10-02 07:37 | CT_ITS ---
FINAL REPORT TECHNIQUE: Postcontrast axial images of the chest were performed in a CTA protocol. This study was performed with techniques to keep radiation doses as low as reasonably achievable, (ALARA). Individualized dose reduction technique using automated exposure control or adjustment of mA and/or kV according to the patient's size were employed. CLINICAL HISTORY: sob FINDINGS: The heart is normal in size. No adenopathy is identified. No pleural or pericardial effusion is identified. The thoracic aorta is normal in caliber with no focal aneurysm or dissection identified. There is no filling defect to suggest pulmonary embolism. No lung infiltrate or mass is identified. The images of the upper abdomen are unremarkable. IMPRESSION: No evidence for PE on this exam. Reviewed, Interpreted and Dictated by Rosa Hamilton MD Transcribed by Shelby Gaffney Authenticated and [facility]
[2024-10-02] MEDS: SODIUM CHLORIDE 0.9% 10ML SYR (RAD ONLY) 10 ML IV (08:20)
[2024-10-02] MEDS: 0.9 % SODIUM CHLORIDE 50 ML VIAL IV (08:20)
[2024-10-02] MEDS: IOPAMIDOL-370 (76%);100ML BOTTLE 85 ML IV (08:21)
== END 2024-10-02 23:59 | disposition home or self-care (01) ==
LOC: RAD 07:35
PROVIDERS: PCP Family Medicine; Visit Provider Nurse Practitioner Family
DX: I20.89 Other forms of angina pectoris (principal); R06.09 Other forms of dyspnea
CPT/HCPCS: 71275; Q9967

== ENCOUNTER 2024-10-03 08:07 | Day surgery (SDC) | payer BC, OTHER, SELFPAY ==
[2024-10-03] VITALS (12 sets, daily range): BP systolic 84–122; BP diastolic 52–73; PULSE 54–69; RESP 17–20; O2SAT 96–100; BMI 27.6
--- NOTE | 2024-10-03 07:11 | IR_ITS ---
APPROVED REPORT Patient Location: Outpatient [facility] Promotional Model: GUADALUPE Hernandez RT (R) PROCEDURES Left heart catheterization Left ventriculogram Selective coronary angiogram INDICATION Abnormal Myoview, Angina pectoris, Informed consent was obtained prior to the procedure. COMPLICATIONS NONE Estimated Blood Loss: LESS THAN 10 ML TECHNIQUE One percent lidocaine used to anesthetize the right anterior aspect of the wrist. The right radial artery was accessed via the Seldinger technique. A 6 Montenegrin sheath was placed in the right radial artery. 2.5 mg of Verapamil, 800 mcg of nitroglycerin, 1mg Lidocaine and 5000 U Heparin were given through the arterial sheath. The papa catheter was also used to perform left heart catheterization, left ventriculogram and selective coronary angiogram. At the end of the procedure the sheath was removed good hemostasis was achieved using Traclet band, patient was transferred to the postop holding area in stable condition. ANGIOGRAPHIC RESULTS The left main artery Normal The left anterior descending artery Proximally normal. The mid and distal segment is highly tortuous with no evidence of atherosclerosis. Initially LIDIA II flow was present with the first injection however subsequent injections resulted in LIDIA-3 flow The circumflex artery Codominant normal The right coronary artery Codominant normal The HOFFMAN ventriculogram reveals Preserved 50% The left ventricular end-diastolic pressure 10 to 15 mmHg IMPRESSION No angiographic evidence of atherosclerotic heart disease Slow flow down the LAD with the initial injection which improved to normal flow suggesting baseline endothelial dysfunction Highly tortuous mid to distal LAD with no atherosclerotic disease Preserved ejection fraction Normal LVEDP PLAN 1. Treatment of endothelial dysfunction and medical management Electronically signed by : Regino Fernandez MD 10/03/2024 09:00:40
[2024-10-03 08:34] LABS: Basophils % 0.6 % (0.1-2.0); Eosinophils # 0.2 K/mm3 (0.0-0.4); Eosinophils % 4.8 % (0.1-12.0); Hemoglobin 13.7 g/dL (14.1-18.0); Lymphocytes # 1.3 K/mm3 (0.7-4.5); Lymphocytes % 40.6 % (10-50); Mean Corpuscular HGB Conc 33.4 g/dL (31.8-35.4); Mean Corpuscular Hemoglobin 30.2 pg (27.0-31.2); Mean Corpuscular Volume 90.3 fl (80-94); Mean Platelet Volume 9.4 fl (7.4-10.4); Monocytes # 0.3 K/mm3 (0.1-1.0); Monocytes % 7.9 % (1.7-9.3); Neutrophils # 1.5 K/mm3 (1.8-7.8); Neutrophils % 45.8 % (37.0-80.0); Platelet Count 145 K/mm3 (142-424); Red Blood Count 4.54 M/mm3 (4.60-6.20); Red Cell Distribution Width 12.3 % (11.5-17.5); White Blood Count 3.3 K/mm3 (4.8-10.8)
[2024-10-03] MEDS: 0.9 % SODIUM CHLORIDE 500 ML 25 ML IV (08:40)
[2024-10-03] MEDS: diphenhydrAMINE 50MG/ML VIAL 50 MG IV (08:40)
[2024-10-03] MEDS: HEPARIN 1,000 UNITS/500ML NS (CATH LAB) 3000 UNIT IV (08:40)
[2024-10-03] MEDS: HEPARIN 1,000 UNITS/ML 10ML VIAL (CATH LAB) 10000 UNIT IV (08:41)
[2024-10-03] MEDS: LIDOCAINE 1% 10ML MDV 20 ML IJ (08:41)
[2024-10-03] MEDS: VERAPAMIL 2.5MG/ML 2ML VIAL 2.5 MG IV (08:41)
[2024-10-03] MEDS: NITROGLYCERIN 800MCG/8ML SYR (CATH LAB) 800 MCG IA (08:42)
[2024-10-03 08:45] LABS: Chloride 107 mmol/L (98-107); Sodium 141 mmol/L (136-145)
[2024-10-03 08:48] LABS: Blood Urea Nitrogen 12 mg/dl (9-20); Carbon Dioxide 26 mmol/L (22.0-30.0); Creatinine Clearance Estimated 120 mL/min (50-200); Estimated Glomerular Filt Rate 89 ml/min (>60); GFR (African American) 108 ML/MIN (>60)
[2024-10-03 08:49] LABS: Calcium 8.9 mg/dl (8.4-10.2); Glucose 99 mg/dl (74-100)
[2024-10-03] MEDS: FENTANYL 100MCG/2ML VIAL 50 MCG IV (08:59)
[2024-10-03] MEDS: MIDAZOLAM HCL 1MG/ML 5ML VIAL 1 MG IV (08:59)
[2024-10-03] MEDS: IOPAMIDOL-370 (76%);100ML BOTTLE 30 ML IV (10:14)
== END 2024-10-03 12:06 | disposition home or self-care (01) ==
PROVIDERS: PCP Family Medicine; Visit Provider Internal Medicine
DX: I20.89 Other forms of angina pectoris (principal); R94.31 Abnormal electrocardiogram [ECG] [EKG]; G47.33 Obstructive sleep apnea (adult) (pediatric); R94.39 Abnormal result of other cardiovascular function study; I42.9 Cardiomyopathy, unspecified; R06.09 Other forms of dyspnea; Z79.899 Other long term (current) drug therapy; I50.20 Unspecified systolic (congestive) heart failure
CPT/HCPCS: 80048; 85025; 93458; 99152; C1725; C1769; J1200; J1644; J3010; Q9967

== ENCOUNTER 2025-02-06 11:56 | Emergency (ER) | payer SELFPAY ==
--- OUTSIDE RECORDS SUMMARY | 2024-10-04 10:15 | XMS_ITS ---
[facility] Address [address] [place] [phone] Care Team Providers Care Creative Director Name Role Phone Maite Stephens Primary Care Provider Cayden Arevalo Unavailable [phone] Allergies Allergen (clinical drug ingredient) Drug/Non Drug [...] 10/04/2024 Encounters Encounter Location Date Provider Diagnosis [facility] [address] [facility] [address] [facility] [address] [place] [phone] 10/04/2024 Maite Stephens Primary narcolepsy without cataplexy [...] Appt Details Follow Up: 2 Months, Reason: Provider Name:Maite Gaytan, 04/09/2025 04:45:00 PM, [address] [facility] [address] [facility], [address], [place], [phone], Progress Notes * Du MARTINEZDOB:1970 ( 54 yo M)Acc No.[id number]:10/04/2024 Progress Notes Patient: Du NARVAEZ Provider: Maite Stephens M.D. :1970 A ge:53 Y S ex:Male Date:10/04/2024 Address:[address] [place] [address] Jenny [id number] Subjective: * Chief Complaints: * 1 . [...] Diagno stic Procedure: s ee above , [facility] [id number] to 12/19/2013. * Family History: F ather: [...] * Images: Billing Information: * Visit Code: 03824 Office Visit, Est Pt., Level 3. * Procedure Codes: 65896 PULSE OX. 3074F SYST BP LT 130 MM HG. 3078F DIAST BP < 80 MM HG. * Electronic signature of Maite Stephens MD on 02/06/2025 at 12:16 PM EDT Sign off status: Pending * Provider: Maite Stephens M.D. Date: 0 10/04/2024 Generated for Chilo banks/Rakesh/Julietaitting on: 0 02/06/2025 12:16 PM EDT History and Physical Notes * HPI (History [...]
--- OUTSIDE RECORDS SUMMARY | 2024-11-20 12:45 | XMS_ITS ---
Author Organization [facility] Address [address] [place] [id number] Care Team Providers Care Suction Drum Drier Operator Name Role Phone Maite Stephens Primary Care Provider [phone] Cayden Arevalo Unavailable [phone] Allergies Allergen (clinical drug ingredient) Drug/Non Drug Allergy documented on EMR Reaction Allergy Type Onset Date Status cephalexin Cephalexin Unknown Drug Allergy Activ e REASON FOR VISIT 2 month med ckup [...] 11/20/2024 Encounters Encounter Location Date Provider Diagnosis [facility] [address] [place] [phone] 11/20/2024 R Eduin Stephens Shoulder pain M25.51 [...] Date X ray : Shoulder, left 11/20/2024 H-PSA 11/20/2024 Next Appt Details Follow Up: 2 Months, Reason: Provider Name:Maite Denny Mabelbonny rivera, 04/09/2025 04:45:00 PM, [address], [address], [place], [place], [phone], Progress Notes * Du MARTINEZDOB:1970 ( 54 yo M)Acc No.[id number]:11/20/2024 Progress Notes Patient: Du NARVAEZ Provider: Maite Stephens M.D. :1970 A ge:54 Y S ex:Male Date:11/20/2024 Address:[address] [place] [address] Jenny [id number] Subjective: * Chief Complaints: * 1 . [...] Diagno stic Procedure: s ee above , [facility] [id number] to 12/19/2013. * Family History: F ather: [...] creening for prostate cancer L AB: H-PSA * Procedure Codes: 3 074F SYST BP LT 130 MM HG, 3079F DIAST BP 80-89 MM HG * Follow Up: 2 Months * Images: Billing Information: * Visit Code: 75335 Office Visit, Est Pt., Level 3. * Procedure Codes: 3074F SYST BP LT 130 MM HG. 3079F DIAST BP 80-89 MM HG. * Electronic signature of Maite Stephens MD on 02/06/2025 at 12:16 PM EDT Sign off status: Pending * Provider: Maite Stephens M.D. Date: 11/20/2024 Generated for Chilo banks/Rakesh/Mariana on: 02/06/2025 12:16 PM EDT History and Physical [...]
--- OUTSIDE RECORDS SUMMARY | 2025-02-05 12:45 | XMS_ITS ---
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 ; Migraine headache G43.909 ; Gastroesophageal reflux disease without esophagitis K21.9 ; BPH (benign prostatic hyperplasia) N40.0 and Vertigo R42 Assessments Encounter Date Diagnosis (ICD Code) Assessment Notes Treatment Notes Treatment Clinical Notes Section Notes 02/05/2025 Daytime hypersomnia (ICD-10 - G47.10) 02/05/2025 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 :1970 A ge:54 Y S ex:Male Date:02/05/2025 Address:[id number] Subjective: * Chief Complaints: * 1 . [...] Diagno stic Procedure: s ee above , [facility] [id number] to 12/19/2013. * Family History: F ather: [...] N40.0 6 . V ertigo - R42 Plan: * Treatment: 2. D aytime hypersomnia [...] times a day as needed, 30. * Follow Up: 2 Months * Images: Billing Information: * Visit Code: 70292 Office Visit, Est Pt., Level 3. * Procedure Codes: * Electronic signature of Maite Stephens MD on 02/06/2025 at 12:15 PM EDT Sign off status: Pending * Provider: Maite Stephens M.D. Date: 02/05/2025 Generated for Chilo banks/Rakesh/Mariana on: 02/06/2025 12:15 PM EDT History and Physical Notes * [...]
--- OUTSIDE RECORDS SUMMARY | 2025-02-06 12:15 | XMS_ITS ---
Author Name Auto Generated, Auto Generated Organization [facility] Address [address] [place] [address] Phone [phone] Care Team Providers Care Freight Clerk Name Role Phone Sagar Eldridge Silvano Unavailable [phone] Functional Status No Results Mental Status No Results Allergies and Intolerances No Known Allergies Medications Medication Directions Start Date End Date buprenorphine 8 mg-naloxone 2 mg sublingual tablet 2 TABLET, SUBLINGUAL Sublingual Every 1 Day TueJan 19 01:00:00 EDT 2022Aug 23 00:00:00 EST 2023 Problems No Known Problems Reason for Referral
--- OUTSIDE RECORDS SUMMARY | 2025-02-06 12:15 | XMS_ITS ---
Author Name Auto Generated, Auto Generated Organization [facility] Address [address] [place] [phone] Phone [phone] Care Team Providers Care Pattern Filer Name Role Phone Sagar Eldridge Silvano Unavailable [phone] Functional Status No Results Mental Status No Results Allergies and Intolerances No Known Allergies Medications Medication Directions Start Date End Date buprenorphine 8 mg-naloxone 2 mg sublingual tablet 2 TABLET, SUBLINGUAL Sublingual Every 1 Day TueJan 19 01:00:00 EDT 2022Aug 23 00:00:00 EST 2023 Problems No Known Problems Reason for Referral
--- OUTSIDE RECORDS SUMMARY | 2025-02-06 12:16 | XMS_ITS | Clinical Summary ---
Author Organization Healthcare Address [address] [place] [address] Care Team Providers Care Sugar Presser Name Role Phone Sagar Eldridge MD Primary Care Provider [phone] Social History Tobacco Use Types Packs/Day Years Used Date Smoking Tobacco: Never Alcohol Use Standard Drinks/Week Comments Yes 0 (1 standard drink = 0.6 oz pur e alcohol) Sex and Gender Information Value Date Recorded Sex Assigned at Not on file Legal Sex Male 8:44 PM EDT Gender Identity Not on file Sexual Orientation Not on file Last Filed Vital Signs Vital Sign Reading Time Taken Comments Blood Pressure - - Pulse - - Temperature - - Respiratory Rate - - Oxygen Saturation - - Inhaled Oxygen Concentration - - Weight 79.4 kg (175 lb 2.1 oz) 07/25/2013 9:25 A M EST Height 177.8 cm (5' 10 ) 07/25/2013 9:25 AM EST Body Mass Index 25.13 07/25/2013 9:25 AM EST Plan of Treatment Not on file Care Teams Sugar Presser Relationship Specialty Start Date End Date Sagar Eldridge MD [address] [place] [address] PCP - General 12/19/20
--- OUTSIDE RECORDS SUMMARY | 2025-02-06 12:16 | XMS_ITS | Encounter Summary ---
Author Organization Healthcare Address [address] [place] [address] Care Team Providers Care Reading Recovery Teacher Name Role Phone Sagar Eldridge MD Primary Care Provider [phone] Encounter Details Date Type Department Care Team (Late st Contact Info) Description 10/23/2024 Community [facility] [address] [place] [address] Ju Johsi MD [address] [facility] [address] [place] [address] Social History Tobacco Use Types Packs/Day Years Used Date Smoking Tobacco: Never Alcohol Use Standard Drinks/Week Comments Yes 0 (1 standard drink = 0.6 oz pur e alcohol) Sex and Gender Information Value Date Recorded Sex Assigned at Not on file Legal Sex Male 8:44 PM EDT Gender Identity Not on file Sexual Orientation Not on file documented as of this encounter Plan of Treatment Not on file documented as of this encounter Visit Diagnoses Not on filedocumented in this encounter Care Teams Reading Recovery Teacher Relationship Specialty Start Date End Date Sagar Eldridge MD [address] [place] [address] PCP - General 12/19/20 documented as of this encounter
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
[2025-02-06 12:18] VITALS: BP 140/90; PULSE 60; O2SAT 100
--- NOTE | 2025-02-06 12:21 | HMH.EDGENADL ---
Discharge Plan Prescriptions Prescriptions: No Action meclizine 25 mg tablet 25 mg PO DAILY PRN (Reason: Vertigo) Patient Comments: TAKE 1 TABLET BY MOUTH THREE TIMES DAILY NEEDED aspirin [Adult Aspirin Regimen] 81 mg tablet,delayed release (DR/EC) 81 mg PO DAILY Qty: 30 5RF methylphenidate HCl 20 mg tablet 20 mg PO DAILY Patient Comments: TAKE 1 & 1/2 (ONE & ONE-HALF) TABLETS BY MOUTH TWICE DAILY tamsulosin 0.4 mg capsule 0.4 mg PO DAILY Patient Comments: TAKE 1 CAPSULE BY MOUTH ONCE DAILY topiramate 100 mg tablet 100 mg PO BID Patient Comments: TAKE 1 TABLET BY MOUTH TWICE DAILY modafinil [Provigil] 100 mg tablet 100 mg PO DAILY Patient Comments: TAKE 1 TABLET BY MOUTH ONCE DAILY IN THE MORNING duloxetine 30 mg capsule,delayed release(DR/EC) 30 mg PO DAILY ibuprofen [IBU] 800 mg tablet 800 mg PO Q8HP PRN (Reason: Moderate Pain) Qty: 30 0RF omeprazole 40 mg capsule,delayed release(DR/EC) 40 mg PO DAILY PRN (Reason: Acid Reflux) Patient Comments: TAKE 1 CAPSULE BY MOUTH IN THE EVENING sumatriptan succinate 100 mg tablet 100 mg PO DAILY PRN (Reason: Headache) Patient Comments: TAKE 1 TABLET BY MOUTH NEEDED FOR HEADACHE buprenorphine-naloxone 8-2 mg tablet, sublingual 2 tab SUBLINGUAL DAILY Referrals Follow up/Referrals: Keven Stephens MD [Primary Care Provider, Medical] - See instructions Print Language Print Language: Tajik Discharge ED Provider: Paresh Denny Adult HPI General Stated complaint: Sent by work. R eye pain. Poss scratch Time Seen by Provider: 02/06/25 12:21 Related Data Home Medications ?Medication ?Instructions ?Recorded ?Confirmed duloxetine 30 mg capsule,delayed 30 mg PO DAILY 04/23/24 10/23/24 release methylphenidate HCl 20 mg tablet 20 mg PO DAILY 04/23/24 10/23/24 modafinil 100 mg tablet (Provigil) 100 mg PO DAILY 04/23/24 10/23/24 tamsulosin 0.4 mg capsule 0.4 mg PO DAILY 04/23/24 10/23/24 topiramate 100 mg tablet 100 mg PO BID 04/23/24 10/23/24 meclizine 25 mg tablet 25 mg PO DAILY PRN Vertigo 08/15/24 10/23/24 omeprazole 40 mg capsule,delayed 40 mg PO DAILY PRN Acid Reflux 08/15/24 10/23/24 release sumatriptan succinate 100 mg tablet 100 mg PO DAILY PRN Headache 08/15/24 10/23/24 buprenorphine 8 mg-naloxone 2 mg 2 tab sublingual DAILY 08/28/24 10/23/24 sublingual tablet Previous Rx's ?Medication ?Instructions ?Recorded ibuprofen 800 mg tablet (IBU) 800 mg PO Q8HP PRN Moderate Pain 04/23/24 #30 tabs aspirin 81 mg tablet,delayed 81 mg PO DAILY #30 tabs 09/27/24 release (Adult Aspirin Regimen) Allergies Allergy/AdvReac Type Severity Reaction Status Date / Time cephalexin (CEPHALEXIN) Allergy Mild Anaphylaxis Verified 10/23/24 15:32 [facility] Disclaimer: The information contained in this section may have been updated after the patient was seen, as this information can be updated by other users. Medical History Endothelial dysfunction of coronary artery Tortuous artery Abnormal cardiovascular stress test Cardiomyopathy HFrEF (heart failure with reduced ejection fraction) LV dysfunction Left sided numbness Fatigue Atypical angina Dyspnea Dizziness Carotid artery hypersensitivity Deviated septum Migraine VICENTA (obstructive sleep apnea) Surgical History H/O cardiac catheterization History of appendectomy History of arthroscopy of shoulder History of arthroscopic knee surgery Family History Other Cancer Coronary artery disease Social History Smoking Status: Never smoker second hand exposure: No alcohol intake: never substance use type: former substance user and prescription drug current occupational status: employed Travel in the last 8 weeks?: None household members: spouse housing: house Have you lived/traveled outside US in past 30 days?: No Contact w/someone who lives/traveled outside US past 30 days?: No Exposure to someone with infectious disease in past 14 days?: No Do you have a fever (greater than 100.4 F or 38 C)?: No Have you tested positive for COVID-19?: No Exposed to someone with COVID-19 in past 14 days?: No Do you have a sore throat?: No Do you have a cough?: No Do you have any weakness?: No Do you have any diarrhea?: No Are you experiencing any unusual bleeding?: No Do you have any muscle aches/pain?: No Do you have any abdominal pain?: No Are you experiencing loss of taste or smell?: No Other Medical History Have you received the Flu Vaccine for this season: No Have you received the Pneumonia Vaccine: No Medical Decision Making Medical Records Screening: Per USPSTF and CDC recommendations, given the prevalence of disease in our region, it is our hospital?s policy to screen for HIV and viral Hepatitis for all patients aged 18 and over and those with ongoing risk factors.
[2025-02-06 12:22] VITALS: BP 140/90; PULSE 60; RESP 18; TEMP 36.8; O2SAT 100; BMI 28.3
[2025-02-06] MEDS: TETRACAINE 0.5% OPTH SOL 15ML OP (12:36)
[2025-02-06] MEDS: FLUORESCEIN SODIUM 1MG STRIP 1 MG OP (12:37)
--- NOTE | 2025-02-06 12:54 | PC.NURSE ---
Visual acuity performed. Bilateral eyes 20/15. L eye 20/20. R eye 20/20
--- NOTE | 2025-02-06 13:03 | PC.NURSE ---
Provider at bedside.
--- NOTE | 2025-02-06 13:10 | ED_ITS ---
<Statement entered by Paresh Denny MD - 02/06/25 17:18> I was consulted by the AMADOR, and we discussed the complexity of problems being addressed. I approved the treatment and management plan for this patient's care in the emergency department, thus performing a substantial portion of the medical decision making. Independently performed a physical exam on this patient demonstrating corneal abrasion no concern for open globe. I evaluated his lid which demonstrated a scant plastic appearing foreign body which I was able to remove with a cotton tip applicator. Cautions are discussed. emycin outpt Paresh Denny MD Discharge Plan Disposition Patient Disposition: Home, Self-Care Prescriptions Prescriptions: New erythromycin 5 mg/gram (0.5 %) ointment 1 applic ophthalmic (eye) TID Qty: 3.5 0RF No Action meclizine 25 mg tablet 25 mg PO DAILY PRN (Reason: Vertigo) Patient Comments: TAKE 1 TABLET BY MOUTH THREE TIMES DAILY NEEDED aspirin [Adult Aspirin Regimen] 81 mg tablet,delayed release (DR/EC) 81 mg PO DAILY Qty: 30 5RF methylphenidate HCl 20 mg tablet 20 mg PO DAILY Patient Comments: TAKE 1 & 1/2 (ONE & ONE-HALF) TABLETS BY MOUTH TWICE DAILY tamsulosin 0.4 mg capsule 0.4 mg PO DAILY Patient Comments: TAKE 1 CAPSULE BY MOUTH ONCE DAILY topiramate 100 mg tablet 100 mg PO BID Patient Comments: TAKE 1 TABLET BY MOUTH TWICE DAILY modafinil [Provigil] 100 mg tablet 100 mg PO DAILY Patient Comments: TAKE 1 TABLET BY MOUTH ONCE DAILY IN THE MORNING duloxetine 30 mg capsule,delayed release(DR/EC) 30 mg PO DAILY ibuprofen [IBU] 800 mg tablet 800 mg PO Q8HP PRN (Reason: Moderate Pain) Qty: 30 0RF omeprazole 40 mg capsule,delayed release(DR/EC) 40 mg PO DAILY PRN (Reason: Acid Reflux) Patient Comments: TAKE 1 CAPSULE BY MOUTH IN THE EVENING sumatriptan succinate 100 mg tablet 100 mg PO DAILY PRN (Reason: Headache) Patient Comments: TAKE 1 TABLET BY MOUTH NEEDED FOR HEADACHE buprenorphine-naloxone 8-2 mg tablet, sublingual 2 tab SUBLINGUAL DAILY Referrals Follow up/Referrals: Keven Stephens MD [Primary Care Provider, Medical] - See instructions Activity Restrictions/Add. Instructions Additional Instructions/Restrictions: Today you were evaluated in the emergency department and diagnosed with a corneal abrasion of your right eye. Please use the erythromycin ointment that you were given in the ED, if you need more there is a prescription at your pharmacy. Please do not drive or do anything dangerous while your vision is blurred in your right eye from the ointment use. As we discussed, follow-up with your eye doctor within this week. Return to the ED for any worsening of your condition. Clinical Impressions Clinical Impression: Corneal abrasion, right Qualifiers: Encounter type: initial encounter Qualified Code(s): S05.01XA - Injury of conjunctiva and corneal abrasion without foreign body, right eye, initial encounter Stand Alone Forms Stand Alone Forms: Work/School Release Instructions Patient Instructions: Corneal Abrasion Print Language Print Language: Bhutanese Discharge ED Provider: Paresh Denny Adult HPI General Chief complaint: Eye Problems Stated complaint: Sent by work. R eye pain. Poss scratch Time Seen by Provider: 02/06/25 12:21 Mode of Arrival: Ambulatory Source of Information: Patient Description of Symptoms (Recalled from ER Triage Doc. by RN): Pt presents for evaluation of possible foreign body to his right eye. Pt states he works for the [employer] and was weed eating . Pt states he did have his safety glasses on. Pt states he felt like something went into his eye. Pt noted to have redness to his right eye and is sensitive to light. Pt states this is a workman's comp. History of Present Illness HPI narrative: patient is a 54-year-old male PMHx cardiomyopathy, HFrEF, history of right eye injuries, VICENTA who presents to the ED for possible foreign body in right eye. Patient states that he weed eats, and worked all day yesterday. He does not remember a particular time where he felt something in his eye however he woke up this morning with the foreign body sensation in the right eye. Patient states he rubbed his eye, felt like that made it worse. He has attempted to flush his eye out on his own. Related Data Home Medications ?Medication ?Instructions ?Recorded ?Confirmed duloxetine 30 mg capsule,delayed 30 mg PO DAILY 10/23/24 release methylphenidate HCl 20 mg tablet 20 mg PO DAILY 10/23/24 modafinil 100 mg tablet (Provigil) 100 mg PO DAILY 10/23/24 tamsulosin 0.4 mg capsule 0.4 mg PO DAILY 04/23/24 topiramate 100 mg tablet 100 mg PO BID 04/23/2410/23 meclizine 25 mg tablet 25 mg PO DAILY PRN Vertigo 0 08/15/24 10/23/24 omeprazole 40 mg capsule,delayed 40 mg PO DAILY PRN Ac id Reflux 08/15/24 10/23/24 release sumatriptan succinate 100 mg tablet 100 mg PO DAILY MA N Headache 08/15/24 10/23/24 buprenorphine 8 mg-naloxone 2 mg 2 tab sublingual ELIZABETH Y 08/28/24 10/23/24 sublingual tablet Previous Rx's ?Medication ?Instructions ?Recorded ibuprofen 800 mg tablet (IBU) 800 mg PO Q8HP PRN Moder ate Pain 04/23/24 #30 tabs aspirin 81 mg tablet,delayed 81 mg PO DAILY #30 tabs 0 09/27/24 release (Adult Aspirin Regimen) erythromycin 5 mg/gram (0.5 %) eye 1 applic ophthalmic (eye) TID #3.5 02/06/25 ointment grams Allergies Allergy/AdvReac Type Severity Reaction Status Date / Time cephalexin (CEPHALEXIN) Allergy Mild Anaphylaxis Verified 10/23/24 15:32 [facility] Disclaimer: The information contained in this section may have been updated after the patient was seen, as this information can be updated by other users. Medical History Endothelial dysfunction of coronary artery Tortuous artery Abnormal cardiovascular stress test Cardiomyopathy HFrEF (heart failure with reduced ejection fraction) LV dysfunction Left sided numbness Fatigue Atypical angina Dyspnea Dizziness Carotid artery hypersensitivity Deviated septum Migraine VICENTA (obstructive sleep apnea) Surgical History H/O cardiac catheterization History of appendectomy History of arthroscopy of shoulder History of arthroscopic knee surgery Family History Other Cancer Coronary artery disease Social History Smoking Status: Never smoker second hand exposure: No alcohol intake: never substance use type: former substance user and prescription drug current occupational status: employed Travel in the last 8 weeks?: None household members: spouse housing: house Have you lived/traveled outside US in past 30 days?: No Contact w/someone who lives/traveled outside US past 30 days?: No Exposure to someone with infectious disease in past 14 days?: No Do you have a fever (greater than 100.4 F or 38 C)?: No Have you tested positive for COVID-19?: No Exposed to someone with COVID-19 in past 14 days?: No Do you have a sore throat?: No Do you have a cough?: No Do you have any weakness?: No Do you have any diarrhea?: No Are you experiencing any unusual bleeding?: No Do you have any muscle aches/pain?: No Do you have any abdominal pain?: No Are you experiencing loss of taste or smell?: No Other Medical History Have you received the Flu Vaccine for this season: No Have you received the Pneumonia Vaccine: No ROS Obtained: Yes Systems reviewed as appropriate & no additional complaints except as documented Physical Exam General General appearance: alert and in no apparent distress Head Head exam: atraumatic and normocephalic Eye Eye exam: Present normal appearance, PERRL, EOMI and other (Right eye injected from the inside corner towards the nose.); Absent scleral icterus, discharge, nystagmus, periorbital swelling or periorbital tenderness ENT ENT exam: Present normal exam Neck Neck exam: Present normal inspection Chest Chest inspection: Present normal inspection and symmetric chest wall rise; Abs ent tenderness Respiratory Respiratory exam: Present normal lung sounds bilaterally Cardiovascular Cardiovascular exam: Present regular rate Abdominal Exam Abdominal exam: Present soft and normal bowel sounds; Absent tenderness Extremities Exam Extremities exam: Present normal inspection and full ROM Back Exam Back exam: Present normal inspection and full ROM Neurological Exam Neurological exam: Present alert and oriented X3 Psychiatric Psychiatric exam: Present normal affect and normal mood Skin Skin exam: Present warm and dry Medical Decision Making Medical Records Screening: Per USPSTF and CDC recommendations, given the prevalence of disease in our region, it is our hospital?s policy to screen for HIV and viral Hepatitis for all patients aged 18 and over and those with ongoing risk factors. Dajuan Inquiry Pt receiving controlled substance: No Vital Signs: 02/06/25 12:18 02/06/25 12:22 02/06/25 13:52 Temperature 98.2 F 98.4 F Temperature Source Oral Pulse Rate 60 86 Pulse Rate [Right] 60 Respiratory Rate 18 16 Blood Pressure 140/90 154/91 H Blood Pressure [Right Arm] 140/90 Blood Pressure Mean 102 Blood Pressure Mean [Right Arm] 106 Blood Pressure Source [Right Arm] Automatic Cuff Blood Pressure Position [Right Arm] Sitting 02 Sat by Pulse Oximetry 100 100 Oxygen Delivery Method Room Air Room Air Orders (Tests/Meds): ED MEDICATIONS Discontinued Medications Generic Name Dose Route Start Last Admin Trade Name Deyvi PRN Reason Stop Dose Admin Fluorescein Sodium 1 mg 02/06/25 12:22 02/06/25 12:37 Fluorescein Sodium 1mg Strip OP 02/06/25 12:23 1 mg ONCE ONE Administration Tetanus/Reduced Diphtheria/Acell Pertussis 0.5 ml 02/06/25 13:30 02/06/25 13:32 Tet/Diphth/Pert-Adult 0.5ml Syringe IM 02/06/25 13:31 0.5 ml .ONCE ONE Administration Tetracaine HCl 0 ml 02/06/25 12:22 02/06/25 12:36 Tetracaine 0.5% Opth Karina 15ml OP 02/06/25 12:23 15 ml ONCE ONE Administration Medical Decision Narrative: In summary, patient is a 54-year-old male PMHx cardiomyopathy, HFrEF, history of right eye injuries, VICENTA who presents to the ED for possible foreign body in right eye. Patient states that he weed eats, and worked all day yesterday. He does not remember a particular time where he felt something in his eye however he woke up this morning with the foreign body sensation in the right eye. Patient states he rubbed his eye, felt like that made it worse. He has attempted to flush his eye out on his own. 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 He denies any visual changes today. Denies fever, chills, headache, posterior neck pain, eye pain, pain with eye movement, among others. Patient wears glasses at baseline. Upon initial evaluation patient is alert, oriented and cooperative. Upon initial exam, right eye mildly injected on inner corner towards the nose. Sanchez lamp procedure performed, I numbed the eye with tetracaine, used fluorescein, dye uptake in the area that is injected. No foreign body noted. Eyewash used to rinse the dye out. Patient tolerated this procedure very well. I placed erythromycin in the patient's right eye during his stay in the ED and he was given a tube of erythromycin to take home. Discussed with patient his diagnosis is corneal abrasion. After the procedure, he states that his pain has significantly improved. Denies any visual changes. Patient states that he has had corneal abrasions in the past and has used erythromycin ointment previously. We discussed use, advised that he will need t o follow-up with his eye doctor this week. We discussed return precautions to the ED and patient verbalized understanding. He requested a work note, I advised him I could write him off 2 days, he states that he will return to work Tuesday since this week in his holiday weekend. Critical Care Critical Care Time Critical Care Time: No
[2025-02-06] MEDS: TET/DIPHTH/PERT-ADULT 0.5ML SYRINGE 0.5 ML IM (13:32)
[2025-02-06 13:52] VITALS: BP 154/91; PULSE 86; RESP 16; TEMP 36.9; O2SAT 100
== END 2025-02-06 13:53 | disposition home or self-care (01) ==
PROVIDERS: Emergency Provider Emergency Medicine; PCP Family Medicine
DX: S05.01XA Injury of conjunctiva and corneal abrasion without foreign body, right eye, initial encounter (principal); W44.8XXA Other foreign body entering into or through a natural orifice, initial encounter; Z23 Encounter for immunization
CPT/HCPCS: 90471; 90715; 99284

== ENCOUNTER 2025-07-24 17:56 | Emergency (ER) | payer BC, OTHER, SELFPAY ==
--- OUTSIDE RECORDS SUMMARY | 2024-07-12 11:15 | XMS_ITS ---
Author Organization [facility] Address [address] [place] [id number] Care Team Providers Care Webmaster Name Role Phone Maite Stephens Primary Care Provider Cayden Arevalo Unavailable [phone] Allergies Allergen (clinical drug ingredient) Drug/Non Drug Allergy documented on EMR Reaction Allergy Type Onset Date Status cephalexin Cephalexin Unknown Drug Allergy Activ e Results Component Value Reference Range Notes H-TSH Reviewed date:08/29/2024 08:22:15 AM Interpretation:see 08/2024 lab performed by Tanya Schneider Performing Lab: Notes/Report: see 08/2024 lab performed by Tanya AlejandreCBC Reviewed date:08/29/2024 08:22:31 AM Interpretation:see 08/2024 lab performed by Tanya Schneider Performing Lab: Notes/Report: see 08/2024 lab performed by Tanya AlejandreLipid Panel Reviewed date:08/29/2024 08:22:42 AM Interpretation:see 08/2024 lab performed by Tanya Schneider Performing Lab: Notes/Report: see 08/2024 lab performed by Tanya AlejandreCMP Reviewed date:08/29/2024 08:22:03 AM Interpretation:see 08/2024 lab performed by Tanya Schneider Performing Lab: Notes/Report: see 08/2024 lab performed by Tanya AlejandrePSA Reviewed date:08/29/2024 08:22:54 AM Interpretation:see 08/2024 lab performed by Tanya Schneider Performing Lab: Notes/Report: see 08/2024 lab performed by Tanya Schneider REASON FOR VISIT 2 month check Medications Medication SIG (Take, Route, Frequency, Duration) Notes Start Date End Date Status Meclizine HCl 25 MG 1 tablet Orally thre e times a day as needed Active Imitrex 100 MG 1 tab(s) orally prn headache Active Omeprazole 40 MG 1 cap(s) orally qPM Active Suboxone 8-2 MG 1 film under the ton cande and allow to dissolve Sublingual Once a day Active Ibuprofen 800 MG 1 tab(s) orally 3 ti mes a day Active Modafinil 100 MG 1 tablet in the morn ing Orally Once a day Active Topiramate 100 MG 1 tablet Orally Two times a day; Duration: 90 days Active Methylphenidate HCl 20 MG 1.5 tabs Orall y 2 times a day Active Tamsulosin HCl 0.4 MG 1 cap(s) orally on ce a day; Duration: 90 days Active Vital Signs Blood pressure systolic 110 mm Hg 07/12/20 24 Blood pressure diastolic 68 mm Hg 024 Heart Rate 73 /min 07/12/2024 Height 69.50 in 07/12/2024 Weight 207.6 lbs 07/12/2024 BMI 30.21 kg/m2 07/12/2024 Encounters Encounter Location Date Provider Diagnosis [facility] [address] [facility] [address] [place], [place] [id number] 07/12/2024 Maite Stephens [facility] use of vidhya ordonez Z79.899 ; 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 Joshi 07/12/2024 Migraine headache (ICD-10 - G43.909) 07/12/2024 Vertigo (ICD-10 - R42) 07/12/2024 Night sweats (ICD-10 - R61) 07/12/2024 Screening for prostate cancer (ICD-10 - Z12.5) Plan Of Treatment Medication Medication Name Sig Start Date Stop Date Notes Modafinil 100 MG 1 tablet in the morn ing Orally Once a day Methylphenidate HCl 20 MG 1.5 tabs Orally 2 times a day Treatment Notes Assessment Notes Obstructive sleep apnea Continue CPAP an d follow-up with Dr. Joshi Next Appt Details Follow Up: 2 Months, Reason: Progress Notes * Du MARTINEZDOB:1970 ( 54 yo M)Acc No.[id number]:07/12/2024 Progress Notes Patient: Du NARAVEZ Provider: Maite Stephens M.D. :1970 A ge:53 Y S ex:Male Date:07/12/2024 Address:[address] [place] [address] Jenny GOMEZ [id number] Subjective: * Chief Complaints: * 1 . 2 month check. * HPI: H PI: 53 year old male presents with c/o Patient is here today for?Pt here today for medication refills. Pt states he is doing well and does not have any concerns today. N eurology: Regarding his sleep apnea, his insurance again denied his sleep study however Dr. Joshi has restarted his CPAP with settings based on his previous sleep study. He states he is having difficulty finding a mask that is comfortable to wear through the night. He is complaining of profuse night sweats which causes the mask to slide off his face. * ROS: D ERMATOLOGY: no R humera. n o H carol. G ASTROENTEROLOGY: no N ausea. n o V omiting. U ROLOGY: no D ifficulty urinating. n o B lood in urine. * Medical History: [facility] - [facility], Cerebral Hemorrhage - 1991, Left Rotator cuff and labral tear - 2004, Depression, Migraine headache, Sleep apnea - mixed central and obstructive - followed by Dr. Joshi, Narcolepsy. * Surgical History: b ilateral arthroscopy , fx skull (drained fluid) , lt shoulder rotater cuff , appendectomy , menescus repair of right knee . * Hospitalization/Major Diagno stic Procedure: s ee above , [id number] to 12/19/2013. * Family History: F ather: alive. M other: alive. 1 son(s) , 1 daughter(s) - healthy. . * Social History: C URRENT TOBACCO USE S moking Status: Patient does NOT smoke. C affeine: yes, frequency:tea. Home smoke detector use: yes. Marital Status: . Past smoking status: no, Smoking status: Does not smoke. * Medications: T aking Meclizine HCl 25 MG Tablet 1 tablet Orally three times a day as needed , Taking Suboxone 8-2 MG Film 1 film under the tongue and allow to dissolve Sublingual Once a day , Taking Ibuprofen 800 MG Tablet 1 tab(s) orally 3 times a day , Taking Imitrex 100 MG Tablet 1 tab(s) orally prn headache , Taking Omeprazole 40 MG Capsule Delayed Release 1 cap(s) orally qPM , Taking Tamsulosin HCl 0.4 MG Capsule 1 cap(s) orally once a day , Taking Topiramate 100 MG Tablet 1 tablet Orally Two times a day , Taking Methylphenidate HCl 20 MG Tablet 1.5 tabs Orally 2 times a day , Taking Modafinil 100 MG Tablet 1 tablet in the morning Orally Once a day , Discontinued Flonase Allergy Relief 50 MCG/ACT Suspension 1 spray(s) intranasally once a day , Discontinued Rosuvastatin Calcium 20 MG Tablet 1 tab(s) orally once a day , Discontinued Omeprazole 20 MG Capsule Delayed Release 1 cap(s) orally once a day , Discontinued Amitriptyline HCl 25 MG Tablet 1 tab(s) orally once a day (at bedtime) , Discontinued Amoxicillin 875 MG Tablet 1 tab(s) orally every 12 hours , Discontinued predniSONE 10 MG Tablet 1 tab(s) orally Two times a day , Discontinued methylPREDNISolone 4 MG Tablet Therapy Pack as directed , Medication List reviewed and reconciled with the patient * Allergies: C ephalexin. Objective: * Vitals: W t:207.6, Temp:98.0, BP:110/68, HR:73, Nurse:arnel, Ht: 69.50, BMI:30.21. * Examination: G eneral Examination: General Appearance: A ffect good. , NAD. H EENT: T Ms are normal bilaterally. N austin: N o bruits. H eart: R SR. L ungs: c lear to auscultation. Assessment: * Assessment: 1. L marialuisa term use of drug - Z79.899 (Primary) 2 . 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 L marialuisa-term current use of stimulant - Z79.899 ? 4 . O bstructive sleep apnea - G47.33 5 . M igraine headache - G43.909 6 . V ertigo - R42 7 . N ight sweats - R61 ?8. S creening for prostate cancer - Z12.5 Plan: * Treatment: 2. O bstructive sleep apnea Notes: Continue CPAP and follow-up with Dr. Joshi * Labs: * L ab: H-Lipid Panel (Collection Date & Time - 08/29/2024) s ee 08/2024 lab performed by Tanya Schaefer ab: H-PSA (Collection Date & Time - 08/29/2024) s ee 08/2024 lab performed by Tanya Schaefer ab: H-CMP (Collection Date & Time - 08/29/2024) s ee 08/2024 lab performed by Tanya Schaefer ab: H-CBC (Collection Date & Time - 08/29/2024) s ee 08/2024 lab performed by Tanya Schaefer ab: H-TSH (Collection Date & Time - 08/29/2024) s 08/2024 lab performed by Tanya Schneider * Follow Up: 2 Months * Images: Billing Information: * Visit Code: 14573 Office Visit, Est Pt., Level 4. * Procedure Codes: * Electronic signature of Maite Stephens MD on 07/24/2025 at 06:05 PM EST Sign off status: Pending * Provider: Maite Stephens M.D. Date: 09/12/2023 Generated for Chilo banks/Rakesh/Mariana on: 09/24/2024 06:05 PM EST History and Physical Notes * HPI (History of Present Illness) Category Sub-Category Detail Notes Category Not es HPI Patient is here today for Pt her e today for medication refills. Pt states he is doing well and does not have any concerns today Examination Category Sub-Category Detail Notes Category Not es General Examination HEENT: TMs are normal bilate rally Heart: RSR Lungs: clear to auscultatio n General Appearance: Affect good. , NAD Neck: No bruits
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
--- OUTSIDE RECORDS SUMMARY | 2024-10-04 09:15 | XMS_ITS ---
[facility] Organization [facility] Address [address] [place] [phone] Care Team Providers Care Motel Manager Name Role Phone Maite Stephens Primary Care Provider Cayden Arevalo Unavailable [phone] Allergies Allergen (clinical drug ingredient) Drug/Non Drug Allergy documented on EMR Reaction Allergy Type Onset Date Status cephalexin Cephalexin Unknown Drug Allergy Activ e REASON FOR VISIT 2 month check Medications Medication SIG (Take, Route, Frequency, Duration) Notes Start Date End Date Status Suboxone 8-2 MG 1 film under the ton cande and allow to dissolve Sublingual Once a day Active Ibuprofen 800 MG 1 tab(s) orally 3 ti mes a day Active Methylphenidate HCl 20 MG 1.5 tabs Orall y 2 times a day Active Topiramate 100 MG 1 tablet Orally Two times a day; Duration: 90 days Active Meclizine HCl 25 MG 1 tablet Orally thre e times a day as needed Active Provigil 100 MG 1 tablet in the morn ing Orally Once a day 09/06/2024 Active Imitrex 100 MG 1 tab(s) orally prn headache Active Omeprazole 40 MG 1 cap(s) orally qPM Active Tamsulosin HCl 0.4 MG 1 cap(s) orally on ce a day; Duration: 90 days Active Vital Signs Blood pressure systolic 118 mm Hg 10/04/19 25 Blood pressure diastolic 70 mm Hg 025 Heart Rate 78 /min 10/04/2024 Height 69.50 in 10/04/2024 Weight 194.0 lbs 10/04/2024 BMI 28.23 kg/m2 10/04/2024 Encounters Encounter Location Date Provider Diagnosis [facility] [address] [place] [phone] 10/04/2024 Maite Stephens 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 ; Insomnia, unspecified type G47.00 ; 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 and Obstructive sleep apnea G47.33 Assessments Encounter Date Diagnosis (ICD Code) Assessment Notes Treatment Notes Treatment Clinical Notes Section Notes 10/04/2024 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 :1970 A ge:53 Y S ex:Male Date:10/04/2024 Address:[address] [place] [address] Jenny BANUEL[id number] Subjective: * Chief Complaints: * 1 . 2 month check. * HPI: H PI: 53 year old male presents with c/o Patient is here today for?Pt is here today for a scheduled 2 month check up. . C ardiology: He has been following with cardiology recently due to atypical chest pain. He had an abnormal stress test showing hypokinesis and ejection fraction of 45% by his history. He was empirically started on Entresto pending results of heart cath. He underwent left heart cath yesterday which showed no flow-limiting stenoses and is to follow-up with cardiology next week to determine what to do about his medical regimen.. * ROS: D ERMATOLOGY: no R humera. [...] appendectomy , menescus repair of right knee , LHC/ Jim/ no flow limiting blockages 09/2024. * Hospitalization/Major Diagno stic Procedure: s ee above , [facility] [id number] to 12/19/2013. * Family History: F ather: [...] Allergies: C ephalexin. Objective: * Vitals: W t:194.0, Temp:97.7, BP:118/70, HR:78, O2 Sat:97% on RA, Nurse:neftaly, Ht: 69.50, BMI:28.23. * Examination: G eneral Examination: General Appearance: N AD. H EENT: T Ms are normal bilaterally. N austin: N o bruits. H eart: R SR. L ungs: c lear to auscultation. Assessment: * Assessment: 1. I nsomnia, unspecified type - G47.00 2 . 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 D aytime hypersomnia - G47.10 4 . O bstructive sleep apnea - G47.33 Plan: * Treatment: 2. D aytime hypersomnia Continue Provigil Tablet, 100 MG, 1 tablet in the morning, Orally, Once a day. * Procedure Codes: 9 4760 PULSE OX, 3074F SYST BP LT 130 MM HG, 3078F DIAST BP < 80 MM HG * Follow Up: 2 Months * Images: Billing Information: * Visit Code: 69579 Office Visit, Est Pt., Level 3. * Procedure Codes: 70007 PULSE OX. 3074F SYST BP LT 130 MM HG. 3078F DIAST BP < 80 MM HG. * Electronic signature of Maite Stephens MD on 07/24/2025 at 06:04 PM EST Sign off status: Pending * Provider: Maite Stephens M.D. Date: 0 10/04/2024 Generated for Chilo banks/Rakesh/Mariana on: 1 09/24/2024 06:04 PM EST History and Physical Notes * HPI (History of Present Illness) Category Sub-Category Detail Notes Category Not es HPI Patient is here today for Pt is here today for a scheduled 2 month check up. Examination Category Sub-Category Detail Notes Category Not es General Examination HEENT: TMs are normal bilate rally Heart: RSR Lungs: clear to auscultatio n General Appearance: NAD Neck: No bruits
--- OUTSIDE RECORDS SUMMARY | 2024-11-20 11:45 | XMS_ITS ---
Author Organization [facility] Address [address] [place] [phone] Care Team Providers Care Mononitrotoluene Operator Name Role Phone Maite Stephens Primary Care Provider Cayden Arevalo Unavailable [phone] Allergies Allergen (clinical drug ingredient) Drug/Non Drug Allergy documented on EMR Reaction Allergy Type Onset Date Status cephalexin Cephalexin Unknown Drug Allergy Activ e Results Component Value Reference Range Notes H-PSA Reviewed date:06/05/2025 04:31:01 PM Interpretation:see 04/09/2025 Performing Lab: Notes/Report: see 04/09/2025 REASON FOR VISIT 2 month med ckup Medications Medication SIG (Take, Route, Frequency, Duration) Notes Start Date End Date Status Suboxone 8-2 MG 1 film under the ton cande and allow to dissolve Sublingual Once a day Active Methylphenidate HCl 20 MG 1.5 tabs Orall y 2 times a day Active SUMAtriptan Succinate 100 MG 1 tablet as needed, may take second dose at least 2 hours after first dose up to 2 tablets per day as needed Active Provigil 100 MG 1 tablet in the morn ing Orally Once a day Active Topiramate 100 MG 1 tablet Orally Two times a day; Duration: 90 days Active Omeprazole 40 MG 1 cap(s) Orally once daily prn; Duration: 30 days Active Meclizine HCl 25 MG 1 tablet Orally thre e times a day as needed Active Tamsulosin HCl 0.4 MG 1 cap(s) orally on ce a day; Duration: 90 days Active Ibuprofen 800 MG 1 tab(s) orally 3 ti mes a day Active Vital Signs Blood pressure systolic 120 mm Hg 11/21/19 25 Blood pressure diastolic 80 mm Hg 025 Heart Rate 73 /min 11/20/2024 Height 69.50 in 11/20/2024 Weight 188.8 lbs 11/20/2024 BMI 27.48 kg/m2 11/20/2024 Encounters Encounter Location Date Provider Diagnosis [facility] [address] [facility] [address] [place] [phone] 11/20/2024 R Eduin Stephens Shoulder pain M25.51 9 ; Vertigo R42 ; 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 ; 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 ; Migraine headache G43.909 ; Gastroesophageal reflux disease without esophagitis K21.9 ; BPH (benign prostatic hyperplasia) N40.0 ; Screening for prostate cancer Z12.5 and BMI 27.0-27.9,adult Z68.27 Assessments Encounter Date Diagnosis (ICD Code) Assessment Notes Treatment Notes Treatment Clinical Notes Section Notes 11/20/2024 Shoulder pain (ICD-10 - M25.519) 11/20/2024 Vertigo (ICD-10 - R42) 11/20/2024 Daytime hypersomnia (ICD-10 - G47.10) 11/20/2024 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) 11/20/2024 Migraine headache (ICD-10 - G43.909) 11/20/2024 Gastroesophageal reflux disease without esophagitis (ICD-10 - K21.9) 11/20/2024 BPH (benign prostatic hyperplasia) (ICD-10 - N40.0) 11/20/2024 Screening for prostate cancer (ICD-10 - Z12.5) 11/20/2024 BMI 27.0-27.9,adult (ICD-10 - Z68.27) Plan Of Treatment Medication Medication Name Sig Start Date Stop Date Notes Methylphenidate HCl 20 MG 1.5 tabs Orally 2 times a day SUMAtriptan Succinate 100 MG 1 tablet as needed, may take second dose at least 2 hours after first dose up to 2 tablets per day as needed Provigil 100 MG 1 tablet in the morn ing Orally Once a day Omeprazole 40 MG 1 cap(s) Orally once daily prn; Duration: 30 days Meclizine HCl 25 MG 1 tablet Orally thre e times a day as needed Tamsulosin HCl 0.4 MG 1 cap(s) orally on ce a day; Duration: 90 days Ibuprofen 800 MG 1 tab(s) orally 3 times a day Pending Test Test Name Order Date X ray : Shoulder, left 11/20/2024 Next Appt Details Follow Up: 2 Months, Reason: Progress Notes * Du MARTINEZDOB:1970 ( 54 yo M)Acc No.[id number]:11/20/2024 Progress Notes Patient: Du NARVAEZ Provider: Maite Stephens M.D. :1970 A ge:54 Y S ex:Male Date:11/20/2024 Address:[address] [place] [address] Jenny [place], [id number] Subjective: * Chief Complaints: * 1 . 2 month med ckup. * HPI: H PI: 54 year old male presents with c/o Patient is here today for?Pt is here today for a 2 month medication check. . He needs refill on some maintenance medication today. S houlder/Upper arm: He is complaining of worsening pain in his left shoulder. He has had 2 previous shoulder repair surgeries in the past. He recalls no recent injury. The pain is limiting some of his activity. He is losing range of motion. * ROS: D ERMATOLOGY: no R humera. [...] Diagno stic Procedure: s ee above , [facility] [id number] to 12/19/2013. * Family History: F ather: [...] orally 3 times a day , Taking Tamsulosin HCl 0.4 MG Capsule 1 cap(s) orally once a day , Taking Topiramate 100 MG Tablet 1 tablet Orally Two times a day , Taking Omeprazole 40 MG Capsule Delayed Release TAKE 1 CAPSULE BY MOUTH IN THE EVENING , Taking SUMAtriptan Succinate 100 MG Tablet TAKE 1 TABLET BY MOUTH NEEDED FOR HEADACHE , Taking Provigil 100 MG Tablet 1 tablet in the morning Orally Once a day , Taking Methylphenidate HCl 20 MG Tablet 1.5 tabs Orally 2 times a day , Medication List reviewed and reconciled with the patient * Allergies: C ephalexin. Objective: * Vitals: W t: 188.8, Temp: 98.5, BP: 120/80, HR: 73, O2 Sat: 99% on RA, Nurse: neftaly, Ht: 69.50, BMI:27.48. * Examination: G eneral Examination: General Appearance: A ffect appropriate , NAD. H eart:?RSR. L ungs: c lear to auscultation. E xtremities: L eft shoulder with no obvious deformity. Old surgical scars noted. There is some tenderness over the AC joint. Range of motion is limited with abduction to about 120 degrees. Assessment: * Assessment: 1. S houlder pain - M25.519 (Primary) 2 . V ertigo - R42 3 . D aytime hypersomnia - G47.10 4 . P rimary narcolepsy without cataplexy - G47.419 5 . M igraine headache - G43.909 6 . G astroesophageal reflux disease without esophagitis - K21.9 7 . B PH (benign prostatic hyperplasia) - N40.0 8 . S creening for prostate cancer - Z12.5 9 .?BMI 27.0-27.9,adult - Z68.27 Plan: * Treatment: 2. V ertigo Refill Meclizine HCl Tablet, 25 MG, 1 tablet, Orally, three times a day as needed, 30. 3. D aytime hypersomnia Continue Provigil Tablet, 100 MG, 1 tablet in the morning, Orally, Once a day. 4. P rimary narcolepsy without cataplexy Continue Methylphenidate HCl Tablet, 20 MG, 1.5 tabs, Orally, 2 times a day, Refills 0. 5. M igraine headache Refill SUMAtriptan Succinate Tablet, 100 MG, 1 tablet as needed, may take second dose at least 2 hours after first dose up to 2 tablets per day as needed, 9, Refills 3. 6. G astroesophageal reflux disease without esophagitis Refill Omeprazole Capsule Delayed Release, 40 MG, 1 cap(s), Orally, once daily prn, 30 days, 30, Refills 3. 7. B PH (benign prostatic hyperplasia) Refill Tamsulosin HCl Capsule, 0.4 MG, 1 cap(s), orally, once a day, 90 days, 90 Capsule, Refills 1. 8. S creening for prostate cancer L AB: H-PSA (Collection Date & Time - 06/05/2025) s ee 04/09/2025 * Procedure Codes: 3 074F SYST BP LT 130 MM HG, 3079F DIAST BP 80-89 MM HG * Follow Up: 2 Months * Images: Billing Information: * Visit Code: 91272 Office Visit, Est Pt., Level 3. * Procedure Codes: 3074F SYST BP LT 130 MM HG. 3079F DIAST BP 80-89 MM HG. * Electronic signature of Maite Stephens MD on 07/24/2025 at 06:04 PM EST Sign off status: Pending * Provider: Maite Stephens M.D. Date: 0 11/20/2024 Generated for Chilo banks/Rakesh/Mariana on: 1 09/24/2024 06:04 PM EST History and Physical Notes * HPI (History of Present Illness) Category Sub-Category Detail Notes Category Not es Shoulder/Upper arm He is complaining of worsening pain in his left shoulder. He has had 2 previous shoulder repair surgeries in the past. He recalls no recent injury. The pain is limiting some of his activity. He is losing range of motion. HPI Patient is here today for Pt is here today for a 2 month medication check. He needs refill on some maintenance medication today Examination Category Sub-Category Detail Notes Category Not es General Examination Heart: RSR Lungs: clear to auscultatio n Extremities: Left shoulder with n o obvious deformity. Old surgical scars noted. There is some tenderness over the AC joint. Range of motion is limited with abduction to about 120 degrees General Appearance: Affect appropriate , NAD
--- OUTSIDE RECORDS SUMMARY | 2025-02-05 11:45 | XMS_ITS ---
Author Organization [facility] Address [address] [place] [id number] Care Team Providers Care Manager Art Name Role Phone Maite Stephens Primary Care Provider Cayden Arevalo Unavailable [phone] Allergies Allergen (clinical drug ingredient) Drug/Non Drug Allergy documented on EMR Reaction Allergy Type Onset Date Status cephalexin Cephalexin Unknown Drug Allergy Activ e REASON FOR VISIT med check Medications Medication SIG (Take, Route, Frequency, Duration) Notes Start Date End Date Status SUMAtriptan Succinate 100 MG 1 tablet as needed, may take second dose at least 2 hours after first dose up to 2 tablets per day as needed Active Suboxone 8-2 MG 1 film under the ton cande and allow to dissolve Sublingual Once a day Active Provigil 100 MG 1 tablet in the morn ing Orally Once a day Active Methylphenidate HCl 20 MG 1.5 tabs Orall y 2 times a day; Duration: 30 days 02/05/2025 Active Meclizine HCl 25 MG 1 tablet Orally thre e times a day as needed Active Omeprazole 40 MG 1 cap(s) Orally once daily prn Active Ibuprofen 800 MG 1 tab(s) orally 3 ti mes a day Active Tamsulosin HCl 0.4 MG 1 cap(s) orally on ce a day; Duration: 90 days Active Topiramate 100 MG Take 1 tablet by jose th twice daily; Duration: 90 Active Vital Signs Blood pressure systolic 130 mm Hg 02/06/20 25 Blood pressure diastolic 82 mm Hg 025 Heart Rate 76 /min 02/05/2025 Height 69.50 in 02/05/2025 Weight 197 lbs 02/05/2025 BMI 28.67 kg/m2 02/05/2025 Encounters Encounter Location Date Provider Diagnosis [facility] [address] [place] [phone] 02/05/2025 Maite Stephens 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 ; 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 ; Migraine headache G43.909 ; Gastroesophageal reflux disease without esophagitis K21.9 ; BPH (benign prostatic hyperplasia) N40.0 ; Vertigo R42 and BMI 28.0-28.9,adult Z68.28 Assessments Encounter Date Diagnosis (ICD Code) Assessment Notes Treatment Notes Treatment Clinical Notes Section Notes 02/05/2025 Daytime hypersomnia (ICD-10 - G47.10) 02/05/2025 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) 02/05/2025 Migraine headache (ICD-10 - G43.909) 02/05/2025 Gastroesophageal reflux disease without esophagitis (ICD-10 - K21.9) 02/05/2025 BPH (benign prostatic hyperplasia) (ICD-10 - N40.0) 02/05/2025 Vertigo (ICD-10 - R42) 02/05/2025 BMI 28.0-28.9,adult (ICD-10 - Z68.28) Plan Of Treatment Medication Medication Name Sig Start Date Stop Date Notes SUMAtriptan Succinate 100 MG 1 tablet as needed, may take second dose at least 2 hours after first dose up to 2 tablets per day as needed Provigil 100 MG 1 tablet in the morn ing Orally Once a day Methylphenidate HCl 20 MG 1.5 tabs Orall y 2 times a day; Duration: 30 days 02/05/2025 Meclizine HCl 25 MG 1 tablet Orally thre e times a day as needed Omeprazole 40 MG 1 cap(s) Orally once daily prn Tamsulosin HCl 0.4 MG 1 cap(s) orally on ce a day; Duration: 90 days Next Appt Details Follow Up: 2 Months, Reason: Progress Notes * Du MARTINEZDOB:1970 ( 54 yo M)Acc No.[id number]:02/05/2025 Progress Notes Patient: Spencer Du FREY Provider: Maite Stephens M.D. :1970 A ge:54 Y S ex:Male Date:02/05/2025 Address:[place], [id number] Subjective: * Chief Complaints: * 1 . Med check. * HPI: H PI: He returns for scheduled follow-up. Interim history is reviewed. Continues to complain of neck and shoulder pain. He did not follow-up with cardiology as scheduled after his heart cath. He is no longer taking the Entresto. Still complains of intermittent vertigo and request refill on meclizine along with other maintenance meds. * ROS: D ERMATOLOGY: no R humera. n o H craol. G ASTROENTEROLOGY: no N ausea. n o [...] Diagno stic Procedure: s ee above , [facility] [id number] to 12/19/2013. * Family History: F ather: alive. M other: alive. 1 son(s) , 1 daughter(s) - healthy. . * Social History: C URRENT TOBACCO USE S moking Status: Patient does NOT smoke. C affeine: yes, frequency:tea. Home smoke detector use: yes. Marital Status: . Past smoking status: no, Smoking status: Does not smoke. * Medications: T aking Suboxone 8-2 MG Film 1 film under the tongue and allow to dissolve Sublingual Once a day , Taking Meclizine HCl 25 MG Tablet 1 tablet Orally three times a day as needed , Taking Ibuprofen 800 MG Tablet 1 tab(s) orally 3 times a day , Taking Tamsulosin HCl 0.4 MG Capsule 1 cap(s) orally once a day , Taking Omeprazole 40 MG Capsule Delayed Release 1 cap(s) Orally once daily prn , Taking SUMAtriptan Succinate 100 MG Tablet 1 tablet as needed, may take second dose at least 2 hours after first dose up to 2 tablets per day as needed , Taking Methylphenidate HCl 20 MG Tablet 1.5 tabs Orally 2 times a day , Taking Topiramate 100 MG Tablet Take 1 tablet by mouth twice daily , Taking Provigil 100 MG Tablet 1 tablet in the morning Orally Once a day , Medication List reviewed and reconciled with the patient * Allergies: C ephalexin. Objective: * Vitals: W t: 197, Temp: 98.5, BP: 130/82, HR: 76, Nurse: pe, Ht: 69.50, BMI:28.67. * Examination: G eneral Examination: General Appearance: A ffect appropriate. H EENT: u nremarkable. N austin: N o bruits. H eart: R SR. L ungs: c lear to auscultation. Assessment: * Assessment: 1. 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 D aytime hypersomnia - G47.10 3 . M igraine headache - G43.909 4 . G astroesophageal reflux disease without esophagitis - K21.9 5 . B PH (benign prostatic hyperplasia) - N40.0 6 . V ertigo - R42 7 . B KS 28.0-28.9,adult - Z68.28 Plan: * Treatment: 2. D aytime hypersomnia Continue Provigil Tablet, 100 MG, 1 tablet in the morning, Orally, Once a day. 3. M igraine headache Refill SUMAtriptan Succinate Tablet, 100 MG, 1 tablet as needed, may take second dose at least 2 hours after first dose up to 2 tablets per day as needed, 9, Refills 3. 4. G astroesophageal reflux disease without esophagitis Continue Omeprazole Capsule Delayed Release, 40 MG, 1 cap(s), Orally, once daily prn. 5. B PH (benign prostatic hyperplasia) Refill Tamsulosin HCl Capsule, 0.4 MG, 1 cap(s), orally, once a day, 90 days, 90 Capsule, Refills 1. 6. V ertigo Refill Meclizine HCl Tablet, 25 MG, 1 tablet, Orally, three times a day as needed, 30. * Procedure Codes: 1 036F TOBACCO NON-USER, G8420 BMI<30 AND >=22 CALC & DOCU, G8783 BP SCR PRFRM RCMDD DEFIND SCR INTVL, G8752 MOST RECENT SYSTOLIC BP < 140MM HG, G8754 MOST RECENT DIASTOLIC BP < 90MM HG * Follow Up: 2 Months * Images: Billing Information: * Visit Code: 07559 Office Visit, Est Pt., Level 3. * Procedure Codes: 1036F TOBACCO NON-USER. G8420 BMI<30 AND >=22 CALC & DOCU. G8783 BP SCR PRFRM RCMDD DEFIND SCR INTVL. G8752 MOST RECENT SYSTOLIC BP < 140MM HG. G8754 MOST RECENT DIASTOLIC BP < 90MM HG. * Electronic signature of Maite Stephens MD on 07/24/2025 at 06:05 PM EST Sign off status: Pending * Provider: Maite Stephens M.D. Date: 0 02/05/2025 Generated for Chilo banks/Rakesh/Carlosransmitting on: 09/24/2024 06:05 PM EST History and Physical Notes * HPI (History of Present Illness) Category Sub-Category Detail Notes Category Not es HPI He returns for scheduled follow-up. Interim history is reviewed. Continues to complain of neck and shoulder pain. He did not follow-up with cardiology as scheduled after his heart cath. He is no longer taking the Entresto. Still complains of intermittent vertigo and request refill on meclizine along with other maintenance meds Examination Category Sub-Category Detail Notes Category Not es General Examination HEENT: unremarkable Heart: RSR Lungs: clear to auscultatio n General Appearance: Affect appropriate Neck: No bruits
--- OUTSIDE RECORDS SUMMARY | 2025-02-28 07:45 | XMS_ITS ---
Author Organization [facility] Address [address] [place] [id number] Care Team Providers Care Finished Cloth Examiner Name Role Phone Maite Stephens Primary Care Provider Cayden Arevalo Unavailable [phone] Results Component Value Reference Range Notes P-Methylphenidate and Metabo lite, Urine, Quantitative Reviewed date:03/12/2025 10:26:17 PM Interpretation:Consistent Performing Lab: Notes/Report: Test performed by [facility] [address] [place] [address] , [address], [place] [address] Caesar Florentino MD, Staff Interpreter CLIA: [id number] Methylphenidate, Urn, Quant <50 <50 ng/mL medical decision making and not to be used for medicolegal evaluation. Please see the directory of service for additional information. This test was developed and its performance characteristics were determined by [facility]. It has not been cleared or approved by the FDA. The laboratory is regulated under CLIA as qualified to perform high-complexity testing. This test is used for clinical purposes and should not be regarded as investigational or for research. Methodology: Quantitative Liquid Chromatography-MS/MS. Urine drug screen quantitation results are for Ritalinic acid, Urn, Quant 234.7 <50 ng/mL For medical purposes only; not [...] and its performance characteristics were determined by [facility]. It has not been cleared or approved by the FDA. The laboratory is regulated under CLIA as qualified to perform high-complexity testing. This test is used for clinical purposes and should not be regarded as investigational or for research. Methodology: Quantitative Liquid Chromatography-MS/MS P-Urine Drug Screen with Ref rolo to Confirmation Reviewed date:03/12/2025 10:26:17 PM Interpretation:Negative Performing Lab: Notes/Report: Test performed by [facility] [address] [place] [address] , [address], [place] [address] Caesar Florentino MD, Staff Interpreter CLIA: [id number] Amphetamines NEGATIVE NEGATIVE Barbiturates NEGATIVE NEGATIVE Benzodiazepines NEGATIVE NEGATIVE Cannabinoids NEGATIVE NEGATIVE Cocaine Metabolites NEGATIVE NEGATIVE Oxycodone NEGATIVE NEGATIVE Methadone NEGATIVE NEGATIVE Opiates NEGATIVE NEGATIVE Phencyclidine NEGATIVE NEGATIVE Propoxyphene NEGATIVE NEGATIVE Immunoassay Drug Screen [place] Values See Below Please see the Directory of Services for cut-off concentrations. Urine drug screen results are for medical decision making and are not to be used for medico-legal evaluation. REASON FOR VISIT UDS per Dr. Stephens Medications Medication SIG (Take, Route, Frequency, Duration) Notes Start Date End Date Status SUMAtriptan Succinate 100 MG 1 tablet as needed, may take second dose at least 2 hours after first dose up to 2 tablets per day as needed Active Provigil 100 MG 1 tablet in the morn ing Orally Once a day Active Tamsulosin HCl 0.4 MG 1 cap(s) orally on ce a day; Duration: 90 days Active Omeprazole 40 MG 1 cap(s) Orally once daily prn Active Topiramate 100 MG Take 1 tablet by jose th twice daily; Duration: 90 Active Methylphenidate HCl 20 MG 1.5 tabs Orall y 2 times a day; Duration: 30 days 02/05/2025 Active Suboxone 8-2 MG 1 film under the ton cande and allow to dissolve Sublingual Once a day Active Meclizine HCl 25 MG 1 tablet Orally thre e times a day as needed Active Ibuprofen 800 MG 1 tab(s) orally 3 ti mes a day Active Encounters Encounter Location Date Provider Diagnosis [facility] [address] [facility] [address] [place], [place] [id number] 02/28/2025 Maite Stephens Other chronic pain G89.29 ; 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 and Insomnia, unspecified type G47.00 Assessments Encounter Date Diagnosis (ICD Code) Assessment Notes Treatment Notes Treatment Clinical Notes Section Notes 02/28/2025 Other chronic pain (ICD-10 - G89.29) 02/28/2025 Daytime hypersomnia (ICD-10 - G47.10) 02/28/2025 Insomnia, unspecified type (ICD-10 - G47.00) Plan Of Treatment No Information Progress Notes * MICHELLE DuDOB:1970 ( 54 yo M)Acc No.[id number]:02/28/2025 Patient: Du NARVAEZ Provider: Maite Stephens M.D. :1970 A ge:54 Y S ex:Male Date:02/28/2025 Address:[address] [place] [address] [address] [id number] Subjective: * Chief Complaints: * [address] Stephens. * Medical History: * Medications: T aking Suboxone 8-2 MG Film 1 film under the tongue and allow to dissolve Sublingual Once a day , Taking Ibuprofen 800 MG Tablet 1 tab(s) orally 3 times a day , Taking Topiramate 100 MG Tablet Take 1 tablet by mouth twice daily , Taking Tamsulosin HCl 0.4 MG Capsule 1 cap(s) orally once a day , Taking Omeprazole 40 MG Capsule Delayed Release 1 cap(s) Orally once daily prn , Taking SUMAtriptan Succinate 100 MG Tablet 1 tablet as needed, may take second dose at least 2 hours after first dose up to 2 tablets per day as needed , Taking Provigil 100 MG Tablet 1 tablet in the morning Orally Once a day , Taking Methylphenidate HCl 20 MG Tablet 1.5 tabs Orally 2 times a day , Taking Meclizine HCl 25 MG Tablet 1 tablet Orally three times a day as needed Objective: * Vitals: Assessment: * Assessment: 1. O ther chronic pain - G89.29 (Primary) 2 . D aytime hypersomnia - G47.10? 3. I nsomnia, unspecified type - G47.00 Plan: * Treatment: Value Reference Range M ethylphenidate, Urn, Quant <50 <50 - ng/mL * R italinic acid, Urn, Quant 234.7 H <50 - ng/mL * Maite Stephens 03/12/2025 1 0:25:26 PM EDT > consistent ?LAB: P-Urine Drug Screen with Reflex to Confirmation (Collection Date & Time - 02/28/2025 11:05AM)?Negative* Value Reference Range A mphetamines, Urine NEGATIVE NEGATIVE - * B enzodiazepines, Urine NEGATIVE NEGATIVE - * B arbiturates, Urine NEGATIVE NEGATIVE - * C ocaine Metabolites, Urine NEGATIVE NEGATIVE - * C annabinoids, Urine NEGATIVE NEGATIVE - * I mmunoassay Drug Screen [place] Values See Below - * M ethadone, Urine NEGATIVE NEGATIVE - * O piates, Urine NEGATIVE NEGATIVE - * O xycodone, Urine Qualitative NEGATIVE NEGATIVE - * P ropoxyphene, Urine NEGATIVE NEGATIVE - * P hencyclidine, Urine NEGATIVE NEGATIVE - * KatMaite garnica 03/12/2025 1 0:25:26 PM EDT > consistent 2.?Daytime hypersomnia?LAB: P-Methylphenidate and Metabolite, Urine, Quantitative (Collection Date & Time - 1:05 AM)?Consistent* Value Reference Range M ethylphenidate, Urn, Quant <50 <50 - ng/mL * R italinic acid, Urn, Quant 234.7 H <50 - ng/mL * Maite Stephens 03/12/2025 1 0:25:26 PM EDT > consistent ?LAB: P-Urine Drug Screen with Reflex to Confirmation (Collection Date & Time - 02/28/2025 11:05AM)?Negative* Value Reference Range A mphetamines, Urine NEGATIVE NEGATIVE - * B enzodiazepines, Urine NEGATIVE NEGATIVE - * B arbiturates, Urine NEGATIVE NEGATIVE - * C ocaine Metabolites, Urine NEGATIVE NEGATIVE - * C annabinoids, Urine NEGATIVE NEGATIVE - * I mmunoassay Drug Screen [place] Values See Below - * M ethadone, Urine NEGATIVE NEGATIVE - * O piates, Urine NEGATIVE NEGATIVE - * O xycodone, Urine Qualitative NEGATIVE NEGATIVE - * P ropoxyphene, Urine NEGATIVE NEGATIVE - * P hencyclidine, Urine NEGATIVE NEGATIVE - * Maite Stephens 03/12/2025 1 0:25:26 PM EDT > consistent 3.?Insomnia, unspecified type?LAB: P-Methylphenidate and Metabolite, Urine, Quantitative (Collection Date & Time - 1:05 AM)?Consistent* Value Reference Range M ethylphenidate, Urn, Quant <50 <50 - ng/mL * R italinic acid, Urn, Quant 234.7 H <50 - ng/mL * KatMaite you 03/12/2025 1 0:25:26 PM EDT > consistent ?LAB: P-Urine Drug Screen with Reflex to Confirmation (Collection Date & Time - 02/28/2025 11:05AM)?Negative* Value Reference Range A mphetamines, Urine NEGATIVE NEGATIVE - * B enzodiazepines, Urine NEGATIVE NEGATIVE - * B arbiturates, Urine NEGATIVE NEGATIVE - * C ocaine Metabolites, Urine NEGATIVE NEGATIVE - * C annabinoids, Urine NEGATIVE NEGATIVE - * I mmunoassay Drug Screen [place] Values See Below - * M ethadone, Urine NEGATIVE NEGATIVE - * O piates, Urine NEGATIVE NEGATIVE - * O xycodone, Urine Qualitative NEGATIVE NEGATIVE - * P ropoxyphene, Urine NEGATIVE NEGATIVE - * P hencyclidine, Urine NEGATIVE NEGATIVE - * Maite Stephens 03/12/2025 1 0:25:26 PM EDT > consistent * Images: Billing Information: * Visit Code: * Procedure Codes: * Electronic signature of Maite Stephens MD on 07/24/2025 at 06:04 PM EST Sign off status: Pending * Provider: Maite Stephens M.D. Date: 0 02/28/2025 Generated for Printi ng/Fakathyg/eTransmitting on: 1 09/24/2024 06:04 PM EST
--- OUTSIDE RECORDS SUMMARY | 2025-04-04 11:15 | XMS_ITS ---
Author Organization [facility] Address [address] [facility] [address] [place] [phone] Care Team Providers Care Electronic Assembler Name Role Phone Maite Stephens Primary Care Provider Cayden Arevalo Unavailable [phone] REASON FOR VISIT check up Encounters Encounter Location Date Provider Diagnosis [facility] [address] [facility] [address] [place] [id number] 04/04/2025 Maite Stephens Plan Of Treatment No Information Progress Notes * Du MARTINEZDOB:1970 ( 54 yo M)Acc No.[id number]:04/04/2025 Progress Notes Patient: Du NARVAEZ Provider: Maite Stephens M.D. :1970 A ge:54 Y S ex:Male Date:04/04/2025 Address:[facility] [id number] Subjective: * Chief Complaints: * 1 . Check up. * Medical History: Objective: * Vitals: Assessment: Plan: * Treatment: * Images: Billing Information: * Visit Code: * Procedure Codes: * Electronic signature of Maite Stephens MD on 07/24/2025 at 06:05 PM EST Sign off status: Pending * Provider: Maite Stephens M.D. Date: 0 04/04/2025 Generated for Printi ng/Fakathyg/eTransmitting on: 1 09/24/2024 06:05 PM EST
--- OUTSIDE RECORDS SUMMARY | 2025-04-09 11:45 | XMS_ITS ---
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 Name Role Phone Maite Stephens Primary Care Provider [phone] Cayden Arevalo Unavailable [phone] Allergies Allergen (clinical drug ingredient) Drug/Non Drug Allergy documented on EMR Reaction Allergy Type Onset Date Status cephalexin Cephalexin Unknown Drug Allergy Activ e Results Component Value Reference Range Notes P-PSA Reviewed date:04/11/2025 09:51:55 AM Interpretation:0.38 Performing Lab: Notes/Report: Test performed by [facility] [address] [place] [address] , [address], [place] [address] Caesar Florentino MD, Overlay Plastician CLIA: [id number] PSA 0.38 <4.00 ng/mL Please note this is an ultrasensitive PSA assay with a lower limit of detection of 0.014 ng/mL. This test is performed by the [employer] ECLIA methodology. Values obtained with different assay methods or kits cannot be directly compared. REASON FOR VISIT 2 MONTHS, Needs colon cancer screening, Tdap, & shingles vaccine Medications Medication SIG (Take, Route, Frequency, Duration) Notes Start Date End Date Status Omeprazole 40 MG 1 cap(s) Orally once daily prn Active Meclizine HCl 25 MG 1 tablet Orally thre e times a day as needed Active Methylphenidate HCl 20 MG 1.5 tabs Orall y 2 times a day Active Provigil 100 MG 1 tablet in the morning Orally Once a day Active SUMAtriptan Succinate 100 MG 1 tablet as needed, may take second dose at least 2 hours after first dose up to 2 tablets per day as needed Active Tamsulosin HCl 0.4 MG 1 cap(s) orally on ce a day Active Omeprazole 40 MG 1 cap(s) Orally once daily prn; Duration: 30 days Active Topiramate 100 MG Take 1 tablet by mouth twice daily; Duration: 90 Active Ibuprofen 800 MG 1 tab(s) orally 3 times a day Not-Taking Suboxone 8-2 MG 1 film under the tongue and allow to dissolve Sublingual Once a day Active Vital Signs Blood pressure systolic 130 mm Hg 04/09/20 25 Blood pressure diastolic 74 mm Hg 025 Heart Rate 94 /min 04/09/2025 Height 69.50 in 04/09/2025 Weight 194 lbs 04/09/2025 BMI 28.23 kg/m2 04/09/2025 Encounters Encounter Location Date Provider Diagnosis [facility] [address] [phone] 04/09/2025 Maite Stephens 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 ; 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 ; Migraine headache G43.909 ; Gastroesophageal reflux disease without esophagitis K21.9 ; BPH (benign prostatic hyperplasia) N40.0 ; Vertigo R42 ; BMI 28.0-28.9,adult Z68.28 ; Screening for prostate cancer Z12.5 and Screening for colon cancer Z12.11 Assessments Encounter Date Diagnosis (ICD Code) Assessment Notes Treatment Notes Treatment Clinical Notes Section Notes 04/09/2025 Daytime hypersomnia (ICD-10 - G47.10) 04/09/2025 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) 04/09/2025 Migraine headache (ICD-10 - G43.909) 04/09/2025 Gastroesophageal reflux disease without esophagitis (ICD-10 - K21.9) 04/09/2025 BPH (benign prostatic hyperplasia) (ICD-10 - N40.0) 04/09/2025 Vertigo (ICD-10 - R42) 04/09/2025 BMI 28.0-28.9,adult (ICD-10 - Z68.28) 04/09/2025 Screening for prostate cancer (ICD-10 - Z12.5) 04/09/2025 Screening for colon cancer (ICD-10 - Z12.11) Plan Of Treatment Medication Medication Name Sig Start Date Stop Date Notes Omeprazole 40 MG 1 cap(s) Orally once daily prn Meclizine HCl 25 MG 1 tablet Orally thre e times a day as needed Methylphenidate HCl 20 MG 1.5 tabs Orally 2 times a day Provigil 100 MG 1 tablet in the morn ing Orally Once a day SUMAtriptan Succinate 100 MG 1 tablet as needed, may take second dose at least 2 hours after first dose up to 2 tablets per day as needed Tamsulosin HCl 0.4 MG 1 cap(s) orally once a day Pending Test Test Name Order Date Cologuard 04/09/2025 Next Appt Details Follow Up: 2 Months, Reason: Progress Notes * Du MARTINEZDOB:1970 ( 54 yo M)Acc No.[id number]:04/09/2025 Progress Notes Patient: Du NARVAEZ Provider: Maite Stephens M.D. :1970 A ge:54 Y S ex:Male Date:04/09/2025 Address:[address] [place] [address] Jenny BANUELOS, [id number] Subjective: * Chief Complaints: * 1 . 2 MONTHS. 2. Needs colon cancer screening, Tdap, & shingles vaccine. * HPI: H PI: 54 year old male presents with c/o Patient is here today for?Pt is here for 2 month check up. He continues on the same medications. He continues to complain of chronic neck pain and is considering returning to pain management for repeat injections.? His UDS in February was consistent. C onstitutional: Discussed health maintenance issues. He has never had colon cancer screening. There is a family history of colon cancer and he is asymptomatic. He has also never had a PSA. * ROS: D ERMATOLOGY: no R humera. n o H carol. G ASTROENTEROLOGY: no N ausea. n o V omiting. n o D iarrhea.? U ROLOGY: no D ifficulty urinating. n [...] Diagno stic Procedure: s ee above , [facility] [id number] to 12/19/2013. * Family History: F ather: [...] dissolve Sublingual Once a day , Taking Topiramate 100 MG Tablet Take 1 tablet by mouth twice daily , Taking Tamsulosin HCl 0.4 MG Capsule 1 cap(s) orally once a day , Taking SUMAtriptan Succinate 100 MG Tablet 1 tablet as needed, may take second dose at least 2 hours after first dose up to 2 tablets per day as needed , Taking Meclizine HCl 25 MG Tablet 1 tablet Orally three times a day as needed , Taking Provigil 100 MG Tablet 1 tablet in the morning Orally Once a day , Taking Omeprazole 40 MG Capsule Delayed Release 1 cap(s) Orally once daily prn , Taking Methylphenidate HCl 20 MG Tablet 1.5 tabs Orally 2 times a day , Not-Taking Ibuprofen 800 MG Tablet 1 tab(s) orally 3 times a day , Medication List reviewed and reconciled with the patient * Allergies: C ephalexin. Objective: * Vitals: W t: 194, Temp: 98.4, BP: 130/74, HR: 94, Nurse: SASCHA, Ht: 69.50, BMI:28.23. * Examination: G eneral Examination: General Appearance: N AD. Affect appropriate. N austin: N o bruits. H eart: R SR. L ungs: c lear to auscultation. ? Assessment: * Assessment: 1. 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 D aytime hypersomnia - G47.10 3 . M igraine headache - G43.909 4 . G astroesophageal reflux disease without esophagitis - K21.9 5 . B PH (benign prostatic hyperplasia) - N40.0 6 . V ertigo - R42 7 . B NE 28.0-28.9,adult - Z68.28 8 . S creening for prostate cancer - Z12.5 9 . S creening for colon cancer - Z12.11 Plan: * Treatment: 2. D aytime hypersomnia Continue Provigil Tablet, 100 MG, 1 tablet in the morning, Orally, Once a day. 3. M igraine headache Continue SUMAtriptan Succinate Tablet, 100 MG, 1 tablet as needed, may take second dose at least 2 hours after first dose up to 2 tablets per day as needed. 4. G astroesophageal reflux disease without esophagitis Continue Omeprazole Capsule Delayed Release, 40 MG, 1 cap(s), Orally, once daily prn. 5. B PH (benign prostatic hyperplasia) Continue Tamsulosin HCl Capsule, 0.4 MG, 1 cap(s), orally, once a day. 6. V ertigo Continue Meclizine HCl Tablet, 25 MG, 1 tablet, Orally, three times a day as needed. 7. S creening for prostate cancer L AB: P-PSA (Collection Date & Time - 04/09/2025 04:00 PM) 0 .38 Value Reference Range P SA 0.38 <4.00 - ng/mL * Maite Stephens 04/11/2025 0 9:51:48 AM EDT > See phone encounter 8.?Screening for colon cancer?LAB: Cologuard* Alexa Aguirre 04/24/2025 04: 33:49 PM EDT > order faxed * Follow Up: 2 Months * Images: Billing Information: * Visit Code: 33241 Office Visit, Est Pt., Level 3. * Procedure Codes: * Electronic signature of Maite Stephens MD on 07/24/2025 at 06:05 PM EST Sign off status: Pending * Provider: Maite Stephens M.D. Date: 0 04/09/2025 Generated for Printi ng/Rakesh/Adysmitting on: 1 09/24/2024 06:05 PM EST History and Physical Notes * HPI (History of Present Illness) Category Sub-Category Detail Notes Category Not es Constitutional Discussed hea lth maintenance issues. He has never had colon cancer screening. There is a family history of colon cancer and he is asymptomatic. He has also never had a PSA. HPI Patient is here today for Pt is here for 2 month check up. He continues on the same medications. He continues to complain of chronic neck pain and is considering returning to pain management for repeat injections His UDS in February was consistent Examination Category Sub-Category Detail Notes Category Not es General Examination Heart: RSR Lungs: clear to auscultatio n General Appearance: NAD. Affect appropri ate Neck: No bruits
--- OUTSIDE RECORDS SUMMARY | 2025-05-28 07:00 | XMS_ITS ---
Author Organization [facility] Address [address] [facility] [address] [place] [id number] Care Team Providers Care Footwear Stitcher Name Role Phone Maite Stephens Primary Care Provider Cayden Arevalo Unavailable [phone] Results Component Value Reference Range Notes P-Methylphenidate and Metabo lite, Urine, Quantitative Reviewed date:06/05/2025 04:30:28 PM Interpretation:not performed Performing Lab: Notes/Report: not performed P-Urine Drug Screen with Ref rolo to Confirmation Reviewed date:06/05/2025 04:30:41 PM Interpretation:not performed Performing Lab: Notes/Report: not performed REASON FOR VISIT pill count and UDS Encounters Encounter Location Date Provider Diagnosis [facility] [address] [place] [phone] 05/28/2025 Maite Stephens Other chronic pain G89.29 ; Insomnia, unspecified type G47.00 and 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 Assessments Encounter Date Diagnosis (ICD Code) Assessment Notes Treatment Notes Treatment Clinical Notes Section Notes 05/28/2025 Other chronic pain (ICD-10 - G89.29) 05/28/2025 Insomnia, unspecified type (ICD-10 - G47.00) 05/28/2025 Daytime hypersomnia (ICD-10 - G47.10) Plan Of Treatment No Information Progress Notes * Du MARTINEZDOB:1970 ( 54 yo M)Acc No.[id number]:05/28/2025 Patient: Spencer FREY Du Provider: Maite Stephens M.D. :1970 A ge:54 Y S ex:Male Date:05/28/2025 Address:[place] [phone] Subjective: * Chief Complaints: * 1 . pill count and UDS. * HPI: H PI: Patient is here today for f or a random UDS and a pill count on Mehtylphenidate and Provigil. * Medical History: Objective: * Vitals: Assessment: * Assessment: 1. O ther chronic pain - G89.29 (Primary) 2 . I nsomnia, unspecified type - G47.00 3 . D aytime hypersomnia - G47.10 Plan: * Treatment: 2. I nsomnia, unspecified type L AB: P-Methylphenidate and Metabolite, Urine, Quantitative (Collection Date & Time - 06/05/2025) n ot performed L AB: P-Urine Drug Screen with Reflex to Confirmation (Collection Date & Time - 06/05/2025) n ot performed 3. D aytime hypersomnia L AB: P-Methylphenidate and Metabolite, Urine, Quantitative (Collection Date & Time - 06/05/2025) n ot performed L AB: P-Urine Drug Screen with Reflex to Confirmation (Collection Date & Time - 06/05/2025) n ot performed * Images: Billing Information: * Visit Code: * Procedure Codes: * Electronic signature of Maite Stephens MD on 07/24/2025 at 06:04 PM EST Sign off status: Pending * Provider: Maite Stephens M.D. Date: 1 Generated for Chilo banks/Rakesh/eTransmitting on: 09/24/2024 06:04 PM EST History and Physical Notes * HPI (History of Present Illness) Category Sub-Category Detail Notes Category Not es HPI Patient is here today for for a random UDS and a pill count on Mehtylphenidate and Provigil
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
[2025-07-24 18:05] VITALS: BP 161/101; PULSE 69; PULSE 73; RESP 20; TEMP 36.8; O2SAT 97; O2SAT 99; BMI 28.7
--- OUTSIDE RECORDS SUMMARY | 2025-07-24 18:05 | XMS_ITS | Encounter Summary ---
[facility] Address [address] [place] [address] Care Team Providers Care Security Ambassador Name Role Phone Keven Stephens MD Primary Care Provider Encounter Details Date Type Department Care Team (Late st Contact Info) Description 08/15/2017 Telephone [facility] [address] [place] [address] [place] [address] [place] [address] Social History Tobacco Use Types Packs/Day Years Used Date Smoking Tobacco: Never Smokeless Tobacco: Never Alcohol Use Standard Drinks/Week Comments No 0 (1 standard drink = 0.6 oz pur e alcohol) Sex and Gender Information Value Date Recorded Sex Assigned at Not on file Legal Sex Male 9:43 AM EDT Gender Identity Not on file Sexual Orientation Not on file documented as of this encounter Plan of Treatment Not on file documented as of this encounter Visit Diagnoses Not on filedocumented in this encounter Care Teams Security Ambassador Relationship Specialty Start Date End Date Keven Stephens MD [address] [facility] [address] [place] [address] PCP - General Family Medicine 05/18/17 documented as of this encounter
--- OUTSIDE RECORDS SUMMARY | 2025-07-24 18:06 | XMS_ITS | Clinical Summary ---
Author Organization [facility] Address [address] [place] [address] Care Team Providers Care Automobile Service Station Manager Name Role Phone Keven Stephens MD Primary Care Provider Allergies Active Allergy Reactions Criticality Noted Date Comments Cephalexin 05/18/2017 Medications topiramate (TOPAMAX) 50 MG tablet Take 50 mg by mouth 2 (Two) Times a Day. Active Sumatriptan-Napr oxen Sodium (TREXIMET PO) Take by mouth As Needed. Active ibuprofen (ADVIL,MOTRIN) 800 MG tablet Take 800 mg by mouth As Needed for Mild Pain . Active SUMAtriptan (IMITREX) 100 MG tablet 05/29/2017 Active diclofenac (VOLTAREN) 1 % gel gel 05/31/2017 Active tamsulosin (FLOMAX) 0.4 MG capsule 24 hr capsule Take 1 capsule by mouth Daily. 10/13/2020 Active methylphenidate (RITALIN) 20 MG tablet Take 20 mg by mouth 2 (Two) Times a Day. 12/02/2020 Active amitriptyline (ELAVIL) 25 MG tablet 11/06/2020 Active DULoxetine (CYMBALTA) 30 MG capsule 01/22/2021 Active HYDROcodone-acet aminophen (NORCO) 5-325 MG per tabletIndication s:S/P right knee arthroscopy Take 1 tablet by mouth Every 6 (Six) Hours As Needed for Severe Pain. 12 tablet 05/25/2022 Active ondansetron (Zofran) 4 MG tablet Take 1 tablet by mouth Every 8 (Eight) Hours As Needed for Nausea. 10 tablet 1 05/25/2022 Active Active Problems No known active problems Social History Tobacco Use Types Packs/Day Years Used Date Smoking Tobacco: Never Smokeless Tobacco: Never Alcohol Use Standard Drinks/Week Comments No 0 (1 standard drink = 0.6 oz pur e alcohol) Abuse Screen Answer Date Recorded Unsafe at Home or Work/School Not on file Feels Threatened by Someone? Not on file 06/2023 Does Anyone Keep You from Co ntacting Others or Doint Things Outside the Home? Not on file 05/18/2023 Physical Sign of Abuse Present Not on file 1 Housing Stability Answer Date Recorded Current Living Arrangements Not on file 05/08 Potentially Unsafe Housing Conditions Not on pedro e 05/18/2023 Family and Community Support Answer Jadon e Recorded Help with Day-to-Day Activities Not on file 05/18/2023 Lonely or Isolated Not on file 05/18/2023 Employment Answer Date Recorded Do you want help finding or keeping work or a miguel angel b? Not on file 05/18/2023 Disabilities Answer Date Recorded Concentrating, Remembering, or Making Decisions Difficulty Not on file 05/18/2023 Doing Errands Independently Difficulty Not on fi le 05/18/2023 Education Answer Date Recorded Help with school or training? Not on file Preferred Language Not on file 05/18/2023 Sex and Gender Information Value Date Recorded Sex Assigned at Not on file Legal Sex Male 9:43 AM EDT Gender Identity Not on file Sexual Orientation Not on file Last Filed Vital Signs Vital Sign Reading Time Taken Comments Blood Pressure 112/78 01/23/2021 10:21 AM EDT Pulse 92 01/23/2021 10:21 AM EDT Temperature - - Respiratory Rate - - Oxygen Saturation - - Inhaled Oxygen Concentration - - Weight 88 kg (194 lb) 01/23/2021 10:21 AM EDT Height 175.3 cm (5' 9.02 ) 01/23/2021 10:21 AM E DT Body Mass Index 28.64 01/23/2021 10:21 AM EDT Plan of Treatment Health Maintenance Due Date Last Done Comments TDAP/TD VACCINES (1 - Tdap) 10/12/1991 ANNUAL PHYSICAL 05/18/2017 HEPATITIS C SCREENING 05/18/2017 COLOGUARD 2017 COLON CANCER SCREENING 5 YEAR SIGMOIDOSCOPY 2017 COLONOSCOPY [address]CER SCREENING [address] COLONOGRAPHY 2017 FECAL OCCULT BLOOD TEST 2017 FIT Testing (1 year) 2017 Pneumococcal Vaccine 50+ (1 of 1 - PCV) 2022 ZOSTER VACCINE (1 of 2) 2022 INFLUENZA VACCINE 03/08/2025 06/07/2017 Insurance [facility] F?rsat Bu F?rsat Care Teams Automobile Service Station Manager Relationship Specialty Start Date End Date Keven Stephens MD [address] [place] [facility] [address] [place] [address] PCP - General Family Medicine 05/18/17
--- NOTE | 2025-07-24 18:08 | PC.NURSE ---
patient stated he is unable to provide urine sample at this time.
[2025-07-24 18:22] LABS: Hematocrit 37.1 % (42.0-52.0); Hemoglobin 12.8 g/dL (14.1-18.0); Immature Granulocytes % 0 %; Mean Corpuscular HGB Conc 34.5 g/dL (31.8-35.4); Mean Corpuscular Hemoglobin 31.1 pg (27.0-31.2); Mean Corpuscular Volume 90.0 fl (80-94); Nucleated Red Blood Cells % 0 %; Platelet Count 214 K/mm3 (142-424); Red Blood Count 4.12 M/mm3 (4.60-6.20); Red Cell Distribution Width-SD 40.1 fL; White Blood Count 4.4 K/mm3 (4.8-10.8)
[2025-07-24] MEDS: KETOROLAC 15MG/ML VIAL 15 MG IV (18:45)
[2025-07-24] MEDS: ACETAMINOPHEN 500MG TAB 1000 MG PO (18:45)
[2025-07-24] MEDS: diazePAM 5MG TABLET 5 MG PO (18:45)
[2025-07-24] MEDS: LIDOCAINE 5% TRANSDERMAL PATCH 1 EACH TD (18:45)
[2025-07-24 18:52] LABS: Albumin Level 4.8 g/dl (3.5-5.0); Chloride 107 mmol/L (98-107); Potassium 3.6 mmoL/L (3.5-5.1); Sodium 138 mmol/L (136-145)
[2025-07-24 18:54] LABS: Blood Urea Nitrogen 12 mg/dl (9-20); Creatinine Clearance Estimated 101 mL/min (50-200); Creatinine,Serum 1.10 mg/dl (0.66-1.25); Estimated Glomerular Filt Rate 70 ml/min (>60); GFR (African American) 85 ML/MIN (>60)
[2025-07-24 18:55] LABS: Alanine Aminotransferase 22 U/L (12-78); Albumin/Globulin Ratio 1.6 (1.1-1.8); Alkaline Phosphatase 97 U/L (38-126); Anion Gap 8.6 mEq/L (5-15); Aspartate Amino Transferase 33 U/L (17-59); Bilirubin,Total 0.5 mg/dl (0.2-1.3); Calcium 8.5 mg/dl (8.4-10.2); Carbon Dioxide 26 mmol/L (22.0-30.0); Globulin 3.0 g/dL (1.3-3.2); Glucose 90 mg/dl (74-100); Lipase 57 U/L (23-300); Total Protein,Serum 7.8 g/dl (6.3-8.2)
--- NOTE | 2025-07-24 19:00 | HMH.EDGENADL ---
Discharge Plan Disposition Patient Disposition: Home, Self-Care Condition: Good Prescriptions Prescriptions: New methocarbamol 750 mg tablet 750 mg PO Q8H PRN (Reason: pain) Qty: 20 0RF ketorolac 10 mg tablet 10 mg PO Q8H PRN (Reason: pain) Qty: 10 0RF lidocaine [Lidoderm] 5 % adhesive patch,medicated 1 patch topical DAILY PRN (Reason: pain) Qty: 15 0RF Rx Instructions: leave on most painful area for up to 12 hrs No Action meclizine 25 mg tablet 25 mg PO DAILY PRN (Reason: Vertigo) Patient Comments: TAKE 1 TABLET BY MOUTH THREE TIMES DAILY NEEDED aspirin [Adult Aspirin Regimen] 81 mg tablet,delayed release (DR/EC) 81 mg PO DAILY Qty: 30 5RF erythromycin 5 mg/gram (0.5 %) ointment 1 applic ophthalmic (eye) TID Qty: 3.5 0RF methylphenidate HCl 20 mg tablet 20 mg PO DAILY Patient Comments: TAKE 1 & 1/2 (ONE & ONE-HALF) TABLETS BY MOUTH TWICE DAILY tamsulosin 0.4 mg capsule 0.4 mg PO DAILY Patient Comments: TAKE 1 CAPSULE BY MOUTH ONCE DAILY topiramate 100 mg tablet 100 mg PO BID Patient Comments: TAKE 1 TABLET BY MOUTH TWICE DAILY modafinil [Provigil] 100 mg tablet 100 mg PO DAILY Patient Comments: TAKE 1 TABLET BY MOUTH ONCE DAILY IN THE MORNING duloxetine 30 mg capsule,delayed release(DR/EC) 30 mg PO DAILY ibuprofen [IBU] 800 mg tablet 800 mg PO Q8HP PRN (Reason: Moderate Pain) Qty: 30 0RF omeprazole 40 mg capsule,delayed release(DR/EC) 40 mg PO DAILY PRN (Reason: Acid Reflux) Patient Comments: TAKE 1 CAPSULE BY MOUTH IN THE EVENING sumatriptan succinate 100 mg tablet 100 mg PO DAILY PRN (Reason: Headache) Patient Comments: TAKE 1 TABLET BY MOUTH NEEDED FOR HEADACHE buprenorphine-naloxone 8-2 mg tablet, sublingual 2 tab SUBLINGUAL DAILY Referrals Follow up/Referrals: Keven Stephens MD [Primary Care Provider, Medical] - See instructions Activity Restrictions/Add. Instructions Additional Instructions/Restrictions: You were evaluated in the emergency department today. As we discussed, we feel your pain is likely muscle strain/sprain. Your lab work and urinalysis looks good. Please follow-up closely with your primary care provider. 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 You may also take Tylenol every 4-6 hours as needed for pain. Return to the emergency department for new or worsening symptoms. Clinical Impressions Clinical Impression: Low back strain Stand Alone Forms Stand Alone Forms: Work/School Release Instructions Patient Instructions: DI for Low Back Pain, DI for Back Strain or Sprain Print Language Print Language: [place] Discharge ED Provider: Corrina Almaguer General Adult HPI General Chief complaint: Back Pain/Injury Stated complaint: right side back pain around kidney Time Seen by Provider: 07/24/25 17:59 Mode of Arrival: Ambulatory Source of Information: Patient Description of Symptoms (Recalled from ER Triage Doc. by RN): lauri presents for right sided flank pain. chely does not have history of kidney stones or issues. west endorses feeling the urge to go but cant but this has been an issue for years becasue of prostate problems . patient rates pain 6/10 currently. History of Present Illness HPI narrative: This patient is a 54-year-old male with a history of VICENTA, migraine, cardiomyopathy, OPO dependence on Suboxone, GERD, BPH presented to the Emergency Department for evaluation with concern for right-sided low back pain. He notes has been going on for a week. He states is worse with movement and certain positions, and his right side low back is very tender. He states he was worried that it could be his kidneys. He denies any fevers, nausea, vomiting, changes to bowel movements, or notable urinary symptoms. The pain is isolated to his back and does not radiate to his abdomen. No recent falls or injuries. No numbness, tingling, saddle anesthesia, extremity weakness, no urinary incontinence, no new urinary retention, no fecal incontinence, or other concerns. Related Data Home Medications ?Medication ?Instructions ?Recorded ?Confirmed duloxetine 30 mg capsule,delayed 30 mg PO DAILY 04/23/24 10/23/24 release methylphenidate HCl 20 mg tablet 20 mg PO DAILY 04/23/24 10/23/24 modafinil 100 mg tablet (Provigil) 100 mg PO DAILY 04/23/24 10/23/24 tamsulosin 0.4 mg capsule 0.4 mg PO DAILY 04/23/24 10/23/24 topiramate 100 mg tablet 100 mg PO BID 04/23/24 10/23/24 meclizine 25 mg tablet 25 mg PO DAILY PRN Vertigo 08/15/24 10/23/24 omeprazole 40 mg capsule,delayed 40 mg PO DAILY PRN Acid Reflux 08/15/24 10/23/24 release sumatriptan succinate 100 mg tablet 100 mg PO DAILY PRN Headache 08/15/24 10/23/24 buprenorphine 8 mg-naloxone 2 mg 2 tab sublingual DAILY 08/28/24 10/23/24 sublingual tablet Previous Rx's ?Medication ?Instructions ?Recorded ibuprofen 800 mg tablet (IBU) 800 mg PO Q8HP PRN Moderate Pain 04/23/24 #30 tabs aspirin 81 mg tablet,delayed 81 mg PO DAILY #30 tabs 09/27/24 release (Adult Aspirin Regimen) erythromycin 5 mg/gram (0.5 %) eye 1 applic ophthalmic (eye) TID #3.5 02/06/25 ointment grams ketorolac 10 mg tablet 10 mg PO Q8H PRN pain #10 tabs 07/24/25 lidocaine 5 % topical patch 1 patch topical DAILY PRN pain #15 07/24/25 (Lidoderm) ea methocarbamol 750 mg tablet 750 mg PO Q8H PRN pain #20 tabs 07/24/25 Allergies Allergy/AdvReac Type Severity Reaction Status Date / Time cephalexin (CEPHALEXIN) Allergy Mild Anaphylaxis Verified 10/23/24 15:32 [facility] Disclaimer: The information contained in this section may have been updated after the patient was seen, as this information can be updated by other users. Medical History Endothelial dysfunction of coronary artery Tortuous artery Abnormal cardiovascular stress test Cardiomyopathy HFrEF (heart failure with reduced ejection fraction) LV dysfunction Left sided numbness Fatigue Atypical angina Dyspnea Dizziness Carotid artery hypersensitivity Deviated septum Migraine VICENTA (obstructive sleep apnea) Surgical History H/O cardiac catheterization History of appendectomy History of arthroscopy of shoulder History of arthroscopic knee surgery Family History Other Cancer Coronary artery disease Social History Smoking Status: Never smoker second hand exposure: No alcohol intake: never substance use type: former substance user and prescription drug current occupational status: employed Travel in the last 8 weeks?: None household members: spouse housing: house Have you lived/traveled outside [place] in past 30 days?: No Contact w/someone who lives/traveled outside [place] past 30 days?: No Exposure to someone with infectious disease in past 14 days?: No Do you have a fever (greater than 100.4 F or 38 C)?: No Have you tested positive for COVID-19?: No Exposed to someone with COVID-19 in past 14 days?: No Do you have a sore throat?: No Do you have a cough?: No Do you have any weakness?: No Do you have any diarrhea?: No Are you experiencing any unusual bleeding?: No Do you have any muscle aches/pain?: No Do you have any abdominal pain?: No Are you experiencing loss of taste or smell?: No Other Medical History Have you received the Flu Vaccine for this season: No Have you received the Pneumonia Vaccine: No ROS Obtained: Yes All systems reviewed & no additional complaints except as documented Physical Exam General General appearance: alert and in no apparent distress Head Head exam: atraumatic and normocephalic Eye Eye exam: Present normal appearance, PERRL and EOMI ENT ENT exam: Present normal exam, normal oropharynx, mucous membranes moist and normal external ear exam Neck Neck exam: Present normal inspection, full ROM and trachea midline; Absent tenderness Chest Chest inspection: Present normal inspection and symmetric chest wall rise; Absent tenderness Respiratory Respiratory exam: Present normal lung sounds bilaterally; Absent respiratory distress, wheezes, stridor or accessory muscle use Cardiovascular Cardiovascular exam: Present regular rate and normal rhythm Abdominal Exam Abdominal exam: Present soft; Absent distention, tenderness or guarding Extremities Exam Extremities exam: Present normal inspection, full ROM and normal capillary refill; Absent tenderness or edema Back Exam Back exam: Present full ROM and tenderness Back 1 view image:  1. Pain is reproducible with palpation. Muscle hypertonicity Comment: No midline step-offs or deformities Neurological Exam Neurological exam: Present alert, oriented X3, CN II-XII intact and normal gait; Absent motor sensory deficit Psychiatric Psychiatric exam: Present normal affect and normal mood Skin Skin exam: Present warm and dry Medical Decision Making Medical Records Medical records reviewed: Yes I reviewed the patient's medical records. Screening: Per USPSTF and CDC recommendations, given the prevalence of disease in our region, it is our hospital?s policy to screen for HIV and viral Hepatitis for all patients aged 18 and over and those with ongoing risk factors. [place] Inquiry Pt receiving controlled substance: No Vital Signs: 07/24/25 18:05 07/24/25 18:05 07/24/25 20:43 Temperature 98.2 F 98.0 F Temperature Source Oral Oral Pulse Rate 73 71 Pulse Rate [Right Radial] 69 Respiratory Rate 20 20 Blood Pressure 142/90 H Blood Pressure [Right Arm] 161/101 H Blood Pressure Mean [Right Arm] 121 Blood Pressure Source Automatic Cuff Blood Pressure Source [Right Arm] Automatic Cuff Blood Pressure Position Sitting Blood Pressure Position [Right Arm] Sitting 02 Sat by Pulse Oximetry 97 99 Oxygen Delivery Method Room Air Room Air Lab Data Lab results reviewed: Yes I reviewed the patient's lab results. Lab Results 07/24/25 18:15: WBC 4.4 L, RBC 4.12 L, Hgb 12.8 L, Hct 37.1 L, MCV 90.0, MCH 31.1, MCHC 34.5, RDW 12.2, Plt Count 214, MPV 9.7, Neut % (Auto) 46.0, Lymph % (Auto) 43.5, [place] % (Auto) 6.6, Eos % (Auto) 3.4, Baso % (Auto) 0.5, Neut # (Auto) 2.0, Lymph # (Auto) 1.9, Worth # (Auto) 0.3, Eos # (Auto) 0.2, Baso # (Auto) 0.0, Sodium 138, Potassium 3.6, Chloride 107, Carbon Dioxide 26, Anion Gap 8.6, BUN 12, Creatinine 1.10, Estimated Creat Clear 101, Estimated GFR 70, Est GFR ( Amer) 85, Glucose 90, Calcium 8.5, Total Bilirubin 0.5, AST 33, ALT 22, Alkaline Phosphatase 97, Total Protein 7.8, Albumin 4.8, Globulin 3.0, Albumin/Globulin Ratio 1.6, Lipase 57 07/24/25 19:44: Urine Color Yellow, Urine Appearance Clear, Urine pH 6.5, Ur Specific [place] 1.015, Urine Protein Negative, Urine Glucose (UA) Negative, Urine Ketones Negative, Urine Blood Negative, Urine Nitrate Negative, Urine Bilirubin Negative, Urine Urobilinogen 1.0, Ur Leukocyte Esterase Negative, Urine RBC None, Urine WBC None, Ur Squamous Epith Cells None, Urine Bacteria None 07/24/25 18:15 07/24/25 18:15 Orders (Tests/Meds): ED MEDICATIONS Discontinued Medications Generic Name Dose Route Start Last Admin Trade Name Freq PRN Reason Stop Dose Admin Acetaminophen 1,000 mg 07/24/25 18:19 07/24/25 18:45 Acetaminophen 500mg Tab PO 07/24/25 18:20 1,000 mg ONCE ONE Administration Dexamethasone Sodium Phosphate 10 mg 07/24/25 20:34 07/24/25 20:45 Dexamethasone 4mg/Ml 1ml Vial IV 07/24/25 20:35 10 mg ONCE ONE Administration Diazepam 5 mg 07/24/25 18:19 07/24/25 18:45 Diazepam 5mg Tablet PO 07/24/25 18:20 5 mg ONCE ONE Administration Ketorolac Tromethamine 15 mg 07/24/25 18:19 07/24/25 18:45 Ketorolac 15mg/Ml Vial IV 07/24/25 18:20 15 mg ONCE ONE Administration Lidocaine 1 each 07/24/25 18:19 07/24/25 18:45 Lidocaine 5% Transdermal Patch TD 07/24/25 18:20 1 each ONCE ONE Administration Methocarbamol 500 mg 07/24/25 20:19 07/24/25 20:29 Methocarbamol 500mg Tablet PO 07/24/25 20:20 500 mg ONCE ONE Administration ORDERS Category Date Time Status Complete Blood Count Auto Diff Stat Lab 07/24/25 18:15 Completed Comprehensive Metabolic Panel Stat Lab 07/24/25 18:15 Completed Lipase Stat Lab 07/24/25 18:15 Completed UA [Urinalysis and Microscopic] Stat Lab 07/24/25 19:44 Completed Medical Decision Narrative: In summary, this patient is a 54-year-old male presenting to the Emergency Department for evaluation of right-sided low back pain is worse with movement. No recent falls or injuries. Differential diagnoses considered include but are not limited to musculoskeletal strain/sprain, disc herniation, radiculopathy, ureterolithiasis, pyelonephritis. Ruling out the most morbid conditions drove assessment. On exam, the patient has pain is reproducible with palpation and any sort of movement. He has tenderness to palpation of his right side of his low back with no midline step-offs or deformities. No alarm findings or symptoms suggestive of cauda equina syndrome or spinal cord compression. I feel he likely has muscular strain as a cause of his current presentation. Out of an abundance of caution, CBC, CMP, urinalysis were obtained. These are reassuring with normal kidney function, no blood in his urine, no concerns for UTI. Workup overall is very reassuring. I gave the patient oral Valium, oral Tylenol, IV Toradol, topical Lidoderm patch for symptomatic improvement, but he states this did not help. Given this, I gave oral Robaxin as well as IV dexamethasone. Ultimately given reassuring workup and exam, I feel he is appropriate for discharge home with diagnosis of low back pain/strain. He was given instructions for close follow-up with PCP as well strict return precautions Critical Care Critical Care Time Critical Care Time: No
[2025-07-24 19:57] LABS: Microscopic, Urine URINE MICROSCOPIC (MICROSCOPIC)
[2025-07-24 20:19] LABS: Bilirubin,Urine Negative (Negative); Color,Urine YELLOW (Yellow); Glucose,Urine (UA) Negative (Negative); Ketones,Urine Negative (Negative); Leukocyte Esterase,Urine Negative (Negative); PH,Urine 6.5 (5.0-8.5); Protein,Urine Negative (Negative); Specific Gravity, Urine 1.015 (1.005-1.030); Urobilinogen,Urine 1.0 EU/dl (0.2)
[2025-07-24] MEDS: METHOCARBAMOL 500MG TABLET 500 MG PO (20:29)
[2025-07-24 20:43] VITALS: BP 142/90; PULSE 71; RESP 20; TEMP 36.7; O2SAT 97
[2025-07-24] MEDS: DEXAMETHASONE 4MG/ML 1ML VIAL 10 MG IV (20:45)
== END 2025-07-24 20:51 | disposition home or self-care (01) ==
PROVIDERS: Emergency Provider Emergency Medicine; PCP Family Medicine
DX: S39.012A Strain of muscle, fascia and tendon of lower back, initial encounter (principal); X58.XXXA Exposure to other specified factors, initial encounter
CPT/HCPCS: 80053; 81001; 83690; 85025; 96374; 96375; 99284; J1100; J1885